=== PATIENT | female | born 1945 | race Caucasian/White ===

== ENCOUNTER → 2017-10-13 12:17 | Outpatient (CLI) | payer MEDICARE, OTHER, SELFPAY ==
[2017-10-13 12:26] LABS: Mucous, Urine 0 SEEN /hpf (<or=2+); Red Blood Cells-Urine 0 SEEN /hpf (0-5)
[2017-10-13 12:35] LABS: Color, Urine Yellow (Yellow); Glucose, Dipstick Normal (Normal); Ketone-Dipstick Negative (Negative); Leukocyte Esterase-Dipstick Negative /ul (Negative); Nitrite-Dipstick Negative (Negative); Occult Blood-Urine Negative /ul (Negative); Protein-Dipstick Negative (Negative); Urine Bilirubin Dipstick Negative (Negative); Urine Clarity Clear (Clear); Urine Urobilinogen Normal (Normal)
[2017-10-13 12:46] LABS: Bacteria RARE /hpf (None Seen); Squamous Epithelial Cells - UA 0-5 SEEN /hpf (5-10); White Blood Cells 0-5 SEEN /hpf (0-5)
[2017-10-13 12:56] LABS: Amphetamine Urine VISTA NEGATIVE (<1000 ng/mL); Barbiturate Urine VISTA NEGATIVE (< 200 ng/mL); Benzodiazepine Urine VISTA NEGATIVE (< 200 ng/mL); Cocaine Urine VISTA NEGATIVE (< 300 ng/mL); Ecstacy Urine VISTA NEGATIVE (< 500 ng/mL); Methadone Urine VISTA NEGATIVE (< 300 ng/mL); PCP Urine VISTA NEGATIVE (< 25 ng/mL); THC Urine VISTA NEGATIVE (< 50 ng/mL); Vista UDS pH Range 6
== END ==
PROVIDERS: Family Provider Internal Medicine; PCP Internal Medicine; Visit Provider Internal Medicine
DX: R10.9 Unspecified abdominal pain (principal); G89.29 Other chronic pain
CPT/HCPCS: 80307; 81001

== ENCOUNTER → 2018-01-12 13:18 | Outpatient (CLI) | payer MEDICARE, OTHER, SELFPAY ==
--- NOTE | 2018-01-12 13:20 | BI_ITS ---
MAMMOGRAPHY - UNILATERAL DIAGNOSTIC: LEFT BREAST REASON FOR EXAM: Female, 72 years old. Right breast carcinoma and lumpectomy 2010. 5 years tamoxifen. Family history breast carcinoma with half sister age 50. Patient currently complains a left breast lump for 3 weeks which is very painful today and hard to palpate but marked mammographically. TECHNIQUE: Digital examination. Mediolateral oblique (MLO) and craniocaudad (CC) views of the breast were obtained. CAD: Yes TOMOSYNTHESIS: Yes COMPARISON: 09/24/2017, 01/03/2016. FINDINGS: Breast Composition: The breasts are almost entirely fatty. There are no new architectural distortion, asymmetric density, dominant masses, suspicious microcalcification cluster, adenopathy, skin thickening or nipple retraction identified. Coarse benign-appearing calcifications are noted. No underlying lesion is identified near the triangular marker near the area of clinical concern involving the left breast lower inner quadrant anterior third near the nipple. No concerning lesion is seen with tomosynthesis imaging. BI/DIAG MAMM W/CAD, UNILAT IMPRESSION: Stable unilateral diagnostic left mammogram. Please see left breast ultrasound same day for additional details. ASSESSMENT CATEGORY: 2-Benign Findings FOLLOW-UP RECOMMENDATION: Yearly follow-up mammogram recommended. (A) Approximately 10% of breast cancers are not detected by mammography. A normal mammogram should not delay biopsy of a clinically suspicious abnormality. Negative mammographic or ultrasound results should not deter biopsy as a palpable lesion if present should be followed on clinical grounds and biopsy performed if clinically persistent for 3 months or increasing size. Clinical correlation is required. Electronically Signed: Bal Hutchison, at 20:47 EDT Tel , Service support ,
--- NOTE | 2018-01-12 15:08 | US_ITS ---
STUDY: ULTRASOUND BREAST - LEFT REASON FOR EXAM: Female, 72 years old. Right breast carcinoma and lumpectomy 2010. 5 years tamoxifen. Family history breast carcinoma with half sister age 50. Patient currently complains a left breast lump for 3 weeks which is very painful today and hard to palpate but marked mammographically. TECHNIQUE: Ultrasound targeted imaging of the LEFT breast was performed with a high resolution ultrasound transducer. COMPARISON: No prior left breast ultrasound imaging available. Correlation mammograms 09/24/2017 and 01/03/2016. FINDINGS: LEFT Breast: No sonographic abnormality is identified including the targeted position of the left breast in the area of clinical concern marked by a triangle by the arrt technologist. US/Breast Limited Unilateral IMPRESSION: No sonographic abnormality is identified. Please see left diagnostic mammogram same day for additional details. ASSESSMENT CATEGORY: 2-Benign Findings FOLLOW-UP RECOMMENDATION: Yearly follow-up mammogram recommended. (A) Approximately 10% of breast cancers are not detected by mammography. A normal mammogram should not delay biopsy of a clinically suspicious abnormality. Negative mammographic or ultrasound results should not deter biopsy as a palpable lesion if present should be followed on clinical grounds and biopsy performed if clinically persistent for 3 months or increasing size. Clinical correlation is required. Electronically Signed: Bal Hutchison, at 21:06 EDT Tel , Service support ,
== END ==
PROVIDERS: Family Provider Internal Medicine; PCP Internal Medicine; Visit Provider Nurse Practitioner Family
DX: N63.24 Unspecified lump in the left breast, lower inner quadrant (principal); N64.4 Mastodynia; Z85.3 Personal history of malignant neoplasm of breast; Z90.11 Acquired absence of right breast and nipple; Z80.3 Family history of malignant neoplasm of breast
CPT/HCPCS: 76642; 77061; 77065; G0279

== ENCOUNTER → 2018-01-13 11:33 | Outpatient (CLI) | payer MEDICARE, OTHER, SELFPAY ==
[2018-01-14 12:05] LABS: Amphetamine Urine VISTA NEGATIVE (<1000 ng/mL); Barbiturate Urine VISTA NEGATIVE (< 200 ng/mL); Benzodiazepine Urine VISTA POSITIVE (< 200 ng/mL); Cocaine Urine VISTA NEGATIVE (< 300 ng/mL); Ecstacy Urine VISTA NEGATIVE (< 500 ng/mL); Methadone Urine VISTA NEGATIVE (< 300 ng/mL); PCP Urine VISTA NEGATIVE (< 25 ng/mL); THC Urine VISTA NEGATIVE (< 50 ng/mL); Vista UDS pH Range 5
== END ==
PROVIDERS: Family Provider Internal Medicine; PCP Internal Medicine; Visit Provider Internal Medicine
DX: G89.29 Other chronic pain (principal)
CPT/HCPCS: 80307

== ENCOUNTER → 2018-04-15 10:04 | Outpatient (CLI) | payer MEDICARE, OTHER, SELFPAY ==
[2018-04-15 10:25] LABS: Amphetamine Urine VISTA NEGATIVE (<1000 ng/mL); Barbiturate Urine VISTA NEGATIVE (< 200 ng/mL); Benzodiazepine Urine VISTA POSITIVE (< 200 ng/mL); Cocaine Urine VISTA NEGATIVE (< 300 ng/mL); Ecstacy Urine VISTA NEGATIVE (< 500 ng/mL); Methadone Urine VISTA NEGATIVE (< 300 ng/mL); PCP Urine VISTA NEGATIVE (< 25 ng/mL); THC Urine VISTA NEGATIVE (< 50 ng/mL); Vista UDS pH Range 5
== END ==
PROVIDERS: Family Provider Internal Medicine; PCP Internal Medicine; Referring Provider Internal Medicine; Visit Provider Internal Medicine
DX: G89.29 Other chronic pain (principal)
CPT/HCPCS: 80307

== ENCOUNTER → 2018-10-20 15:19 | Outpatient (CLI) | payer MEDICARE, OTHER, SELFPAY ==
[2018-10-20 13:10] VITALS: BMI 39.1
[2018-10-20 16:26] LABS: Amphetamine Urine VISTA NEGATIVE (<1000 ng/mL); Barbiturate Urine VISTA NEGATIVE (< 200 ng/mL); Benzodiazepine Urine VISTA POSITIVE (< 200 ng/mL); Cocaine Urine VISTA NEGATIVE (< 300 ng/mL); Ecstacy Urine VISTA NEGATIVE (< 500 ng/mL); Methadone Urine VISTA NEGATIVE (< 300 ng/mL); PCP Urine VISTA NEGATIVE (< 25 ng/mL); THC Urine VISTA NEGATIVE (< 50 ng/mL); Vista UDS pH Range 5
== END ==
PROVIDERS: Family Provider Internal Medicine; PCP Internal Medicine; Referring Provider Internal Medicine; Visit Provider Internal Medicine
DX: G25.81 Restless legs syndrome (principal); G89.29 Other chronic pain
CPT/HCPCS: 80307

== ENCOUNTER → 2018-11-23 13:19 | Outpatient (CLI) | payer MEDICARE, OTHER, SELFPAY ==
[2018-10-20 13:10] VITALS: BMI 39.1
[2018-11-20 09:44] VITALS: BMI 38.4
--- NOTE | 2018-11-23 13:20 | BI_ITS ---
MAMMOGRAPHY - BILATERAL SCREENING REASON FOR EXAM: Female, 73 years old. Routine annual screening examination. PERTINENT HISTORY: Personal history of breast cancer. Prior right lumpectomy Sister with breast cancer. TECHNIQUE: Digital bilateral breast andrea (3D mammographic acquisition) in the CC and MLO projections. 2-D mediolateral oblique (MLO) and craniocaudad (CC) views of both breasts were obtained. CAD: Full Field Digital Mammography with Computer Added Detection was performed. COMPARISON: Comparison is made with prior examination dated January 12, 2018. FINDINGS: Breast Composition: The breasts are almost entirely fatty. There are no dominant masses or suspicious calcifications. Stable coarse benign-appearing calcifications are once again seen in the upper midportion of the right breast. This most likely represents the site of prior surgical intervention. No new mass lesion or clustered calcification is seen. No other significant abnormalities are identified. There has been no significant change since the prior study. BI/SCREENING MAMM (CAD), BILAT IMPRESSION: Stable bilateral screening mammogram. Yearly follow-up mammogram recommended. (A) ASSESSMENT CATEGORY: BIRADS Category 2: Benign. A letter regarding these results will be sent to the patient by the facility within 30 days. Approximately 10% of breast cancers are not detected by mammography. A normal mammogram should not delay biopsy of a clinically suspicious abnormality. [id number] Electronically Signed: Geovanni Sarkar, at 14:49 EDT , Service support ,
== END ==
PROVIDERS: Family Provider Internal Medicine; PCP Internal Medicine; Referring Provider Internal Medicine; Visit Provider Internal Medicine
DX: Z12.31 Encounter for screening mammogram for malignant neoplasm of breast (principal); Z80.3 Family history of malignant neoplasm of breast
CPT/HCPCS: 77067

== ENCOUNTER → 2019-01-21 16:07 | Outpatient (CLI) | payer MEDICARE, OTHER, SELFPAY ==
[2019-01-21 13:16] VITALS: BMI 38.4
[2019-01-21 16:49] LABS: Amphetamine Urine VISTA NEGATIVE (<1000 ng/mL); Barbiturate Urine VISTA NEGATIVE (< 200 ng/mL); Benzodiazepine Urine VISTA POSITIVE (< 200 ng/mL); Cocaine Urine VISTA NEGATIVE (< 300 ng/mL); Ecstacy Urine VISTA NEGATIVE (< 500 ng/mL); Methadone Urine VISTA NEGATIVE (< 300 ng/mL); PCP Urine VISTA NEGATIVE (< 25 ng/mL); THC Urine VISTA NEGATIVE (< 50 ng/mL); Vista UDS pH Range 6
== END ==
PROVIDERS: Family Provider Internal Medicine; PCP Internal Medicine; Referring Provider Internal Medicine; Visit Provider Internal Medicine
DX: G89.29 Other chronic pain (principal)
CPT/HCPCS: 80307

== ENCOUNTER → 2019-02-15 16:52 | Outpatient (CLI) | payer MEDICARE, OTHER, SELFPAY ==
[2019-02-15 13:39] VITALS: BMI 38.4
== END ==
PROVIDERS: Family Provider Internal Medicine; PCP Internal Medicine; Referring Provider Internal Medicine; Visit Provider Internal Medicine
DX: R19.7 Diarrhea, unspecified (principal); R10.9 Unspecified abdominal pain
CPT/HCPCS: 83630; 87493

== ENCOUNTER → 2019-12-02 10:48 | Outpatient (CLI) | payer MEDICARE, SELFPAY ==
[2019-09-21 09:56] VITALS: BMI 38.4
--- NOTE | 2019-12-02 10:49 | BI_ITS ---
MAMMOGRAPHY - BILATERAL SCREENING 3-D TOMOSYNTHESIS REASON FOR EXAM: Female, 74 years old. Routine screening PERTINENT HISTORY: BILAT SCREENING - PERSONAL HX @ AGE 64 WITH RT LUMPECTOMY WITH TAMOXIFEN - FAM HX OF 1/2 SISTER @ AGE 50''S -. TECHNIQUE: 2-D mammograms and 3-D Tomosynthesis of the breast (s) were performed. CAD was performed. COMPARISON: 11/23/2018 FINDINGS: The breast composition is almost entirely fat. Scattered benign calcifications are seen. No dense spiculated masses or suspicious microcalcifications are identified. Stable architectural distortion in the right breast from previous surgery.. There is no skin thickening or retraction. There has been no significant change since the prior study. BI/SCREEN MAMM (CAD) W/SEVEN BILAT IMPRESSION: No mammographic signs of malignancy. Routine yearly mammograms recommended. ASSESSMENT CATEGORY: BIRADS Category 2: Benign. A letter regarding these results will be sent to the patient by the facility within 30 days. FOLLOW UP RECOMMENDATION: Yearly follow up mammogram recommended. (A) Approximately 10% of breast cancers are not detected by mammography. A normal mammogram should not delay biopsy of a clinically suspicious abnormality. Electronically Signed: Orville Anderson MD at 13:35 EDT , Service support ,
--- NOTE | 2019-12-02 11:03 | BD_ITS ---
STUDY: DUAL ENERGY X-RAY ABSORPTIOMETRY / DXA REASON FOR EXAM: Female, 74 years old. Age of surgical clotilde 50. Pat is 187.9# and 61 and quot; a loss of 1.5 and quot;. Past use on an HRT. Past hx of smoking. Past use of an inhaler for many yrs PRN . Exercises a little. Fam hx of osteo. TECHNIQUE: Bone Mineral Density (BMD) measurements of lumbar spine and bilateral hips were obtained. COMPARISON: Comparison is made with prior study dated December 27, 2014. FINDINGS: Lumbar Spine (L1-L4): g/cm2 (1.086) / T-score (-0.8) / Z-score (0.9) Findings are suggestive of normal bone density with a low fracture risk. Left Femur Total: g/cm2 (0.968) / T-score (-0.3) / Z-score (1.3) Left Femoral Neck: g/cm2 (0.742) / T-score (-2.1) / Z-score (-0.3) Right Femur Total: g/cm2 (0.936) / T-score (-0.6) / Z-score (1.1) Right Femoral Neck: g/cm2 (0.756) / T-score (-2.0) / Z-score (-0.2) The T-Scores on the most recent prior examination were: Lumbar Spine (L1-L4): There has been worsening of bone density since the previous examination. Left Femur Total: which represents a worsening of 7.8%. Right Femur Total: which represents a worsening of 9.1%. BD/Dexa Bone Density Study IMPRESSION: The patient is considered osteopenic as outlined below according to World Blair Organization (WHO) criteria with a moderate fracture risk. There has been worsening of bone density since the previous examination. Reference Information: The T-score is the number of standard deviations above or below the standard which is normal for young adults at their peak bone mineral density. The World Health Organization (WHO) interprets the T-scores as follows: Above -1 Normal bone density Between -1 and -2.5 Osteopenia Equal to / or below -2.5 Osteoporosis As a practical clinical guideline, osteopenia may be graded as follows: Mild -1 through -1.5 Moderate -1.6 through -2.0 Severe -2.1 through -2.4 The Z-score is the number of standard deviations above or below age-matched controls. A Z-score of less than -1.5 would be considered abnormal. References: 1. NIH Osteoporosis and Related Bone Diseases http://www.osteo.org 2. International Society for Clinical Densitometry http://www.iscd.org 3. National Osteoporosis Foundation http://www.nof.org Electronically Signed: Geovanni Sarkar, at 12:54 EDT , Service support ,
== END ==
PROVIDERS: PCP Internal Medicine; Referring Provider Internal Medicine; Visit Provider Internal Medicine
DX: Z12.31 Encounter for screening mammogram for malignant neoplasm of breast (principal); Z78.0 Asymptomatic menopausal state
CPT/HCPCS: 77063; 77067; 77080

== ENCOUNTER → 2019-12-21 11:23 | Outpatient (CLI) | payer MEDICARE, OTHER, SELFPAY ==
[2019-12-21 10:49] VITALS: BMI 38.4
[2019-12-21 12:59] LABS: Amphetamine Urine VISTA NEGATIVE (<1000 ng/mL); Barbiturate Urine VISTA NEGATIVE (< 200 ng/mL); Benzodiazepine Urine VISTA POSITIVE (< 200 ng/mL); Cocaine Urine VISTA NEGATIVE (< 300 ng/mL); Ecstacy Urine VISTA NEGATIVE (< 500 ng/mL); Methadone Urine VISTA NEGATIVE (< 300 ng/mL); PCP Urine VISTA NEGATIVE (< 25 ng/mL); THC Urine VISTA NEGATIVE (< 50 ng/mL); Vista UDS pH Range 6
== END ==
PROVIDERS: PCP Internal Medicine; Referring Provider Internal Medicine; Visit Provider Internal Medicine
DX: M79.7 Fibromyalgia (principal); G25.81 Restless legs syndrome
CPT/HCPCS: 80307

== ENCOUNTER → 2020-04-05 16:11 | Outpatient (CLI) | payer MEDICARE, OTHER, SELFPAY ==
[2020-04-05 15:02] VITALS: BMI 33.4
[2020-04-05 17:18] LABS: Hematocrit 46.9 % (37-47); Hemoglobin 14.9 g/dL (12.0-15.0)
[2020-04-05 17:33] LABS: BNP,B-Type NATRIURETIC PEPTIDE 108.3 pg/mL (0-100)
[2020-04-05 17:45] LABS: Anion Gap 7 (5-15); BUN 17 mg/dL (7-18); BUN/Creat Ratio 21.9 RATIO (10-20); Calcium,Total 9.1 mg/dL (8.5-10.1); Chloride 103 mmol/L (98-107); Creatinine, Serum 0.78 mg/dL (0.55-1.02); EST Glomerular Filtration Rate 77 mL/min (>60); Est Glom Filt Rate - Afr Amer 93 mL/min (>60); Glucose 88 mg/dL (74-106); Magnesium 2.6 mg/dL (1.6-2.6); Potassium 4.1 mmol/L (3.5-5.1); Sodium Level 141 mmol/L (136-145)
== END ==
PROVIDERS: PCP Internal Medicine; Referring Provider Physician Assistant Medical; Visit Provider Physician Assistant Medical
DX: R06.00 Dyspnea, unspecified (principal); R00.2 Palpitations; I25.10 Atherosclerotic heart disease of native coronary artery without angina pectoris; G56.03 Carpal tunnel syndrome, bilateral upper limbs
CPT/HCPCS: 36415; 80048; 83735; 83880; 84443; 85014; 85018

== ENCOUNTER → 2020-04-19 | Outpatient (CLI) | payer MEDICARE, OTHER, SELFPAY ==
[2020-04-05 15:02] VITALS: BMI 33.4
== END | disposition home or self-care (01) ==
LOC: LABSPEC 15:29
PROVIDERS: PCP Internal Medicine; Referring Provider Internal Medicine; Visit Provider Internal Medicine
DX: R19.7 Diarrhea, unspecified (principal)
CPT/HCPCS: 87493

== ENCOUNTER → 2020-05-09 07:02 | Outpatient (CLI) | payer MEDICARE, OTHER, SELFPAY ==
[2020-04-05 15:02] VITALS: BMI 33.4
--- NOTE | 2020-05-09 11:45 | STRESSREP_ITS ---
Stress Test Report Date: 05-09-2020 Procedure: Exercise tolerance test/imaging study Indications: Shortness of breath/dyspnea on exertion; palpitations; PSVT; CAD Consent: Per the patient Procedure: The patient exercised on a José protocol for 2 minutes and 15 seconds not completing Stage I achieving a peak heart rate of 134 bpm (91% predicted maximal heart rate) with a peak blood pressure 108/74 mmHg and a peak MET capacity of 4 METs. The baseline ECG demonstrated normal sinus rhythm; nonspecific T wave abnormality. The peak exercise ECG demonstrated somatic/motion artifact with no obvious ECG changes. There were occasional PVCs during exercise and recovery and the appearance of ventricular bigeminy, trigeminy, and quadrigeminy during recovery as well as the appearance of a brief episode of a nonsustained irregular wide-complex tachycardia with spontaneous resolution to baseline and a nonsustained irregular narrow complex tachycardia with subsequent spontaneous resolution to baseline. The functional capacity was considered decreased. There was no complaint of chest discomfort during exercise or recovery. The examination was discontinued secondary to dyspnea. Impression: 1. Technically adequate (percent predicted maximal heart rate greater than 85%) exercise tolerance test 2. Peak exercise ECG with somatic/motion artifact 3. There were occasional PVCs during exercise and recovery and the appearance of ventricular bigeminy, trigeminy, and quadrigeminy during recovery as well as the appearance of a brief episode of a nonsustained irregular wide-complex tachycardia with spontaneous resolution to baseline and a nonsustained irregular narrow complex tachycardia with subsequent spontaneous resolution to baseline. 4. Pharmacologic (Regadenoson) evaluation pending Procedure: Pharmacologic stress nuclear imaging study Consent: Per the patient Procedure: The patient underwent pharmacologic (Regadenoson) evaluation with a peak heart rate of 121 beats per minute (82%predicted maximal heart rate) and a peak blood pressure of 120/70 mmHg. The baseline ECG demonstrated normal sinus rhythm with nonspecific T wave abnormality. The peak pharmacologic ECG demonstrated continued nonspecific T wave abnormality as well as subtle ST segment horizontal depression in leads II, III, and aVF with gradual return to baseline in recovery. There were no cardiac dysrhythmias pretest, during pharmacologic infusion, or recovery. There was no complaint of chest discomfort during pharmacologic infusion or recovery. The examination was discontinued secondary to completion of protocol. Impression: 1. Pharmacologic (Regadenoson) evaluation 2. Peak pharmacologic ECG with continued nonspecific T wave abnormality as well as subtle ST segment horizontal depression in leads II, III, and aVF with gradual return to baseline in recovery. 3. There were no cardiac dysrhythmias pretest, during pharmacologic infusion, or recovery. 4. Nuclear images pending Myocardial perfusion imaging study: Technique: The patient was injected with 11.2 millicuries of technetium 99m Cardiolite and subsequently rest SPECT Cardiolite nuclear imaging was obtained in the horizontal long, vertical long, and short axis views. The patient exercised on a José protocol for 2 minutes and 15 seconds not completing Stage I achieving a peak heart rate of 134 bpm (91% predicted maximal heart rate) with a peak blood pressure 108/74 mmHg and a peak MET capacity of 4 METs. The patient underwent pharmacologic (Regadenoson) evaluation with a peak heart rate of 121 beats per minute (82% percent predicted maximal heart rate) and a peak blood pressure of 120/70 mmHg. The patient was injected with 33.8 millicuries of technetium 99m Cardiolite and subsequently stress SPECT Cardiolite nuclear imaging was obtained in the horizontal long, vertical long, and short axis views. A gated Cardiolite study at peak stress was obtained. Interpretation: Rest and stress SPECT Cardiolite nuclear imaging status post realignment, normalization, and attenuation correction demonstrate relative uniform tracer uptake and myocardial perfusion appearing within normal limits. There is end systolic thickening and brightening. The gated Cardiolite study demonstrates myocardial thickening and inward wall motion. The reported LVEF is 85%. Impression: 1. Rest and stress SPECT Cardiolite nuclear imaging demonstrate relative uniform tracer uptake and myocardial perfusion appearing within normal limits. 2. The gated Cardiolite study reports an LVEF of 85%. This note was generated with [employer] software. It may contain incorrect words, spelling, and punctuation that were not noted in checking the note before signing.
== END ==
PROVIDERS: PCP Internal Medicine; Referring Provider Physician Assistant Medical; Visit Provider Physician Assistant Medical
DX: R06.02 Shortness of breath (principal); R00.2 Palpitations; I25.10 Atherosclerotic heart disease of native coronary artery without angina pectoris
CPT/HCPCS: 78452; 93017; 93225; 93226; A9500; A4216; J2785

== ENCOUNTER → 2020-05-16 09:30 | Outpatient (CLI) | payer MEDICARE, OTHER, SELFPAY ==
[2020-05-16 08:43] VITALS: BMI 32.3
[2020-05-16 10:41] LABS: Anion Gap 4 (5-15); BUN 9 mg/dL (7-18); Calcium,Total 9.1 mg/dL (8.5-10.1); Chloride 106 mmol/L (98-107); Creatinine, Serum 0.69 mg/dL (0.55-1.02); EST Glomerular Filtration Rate 88 mL/min (>60); Est Glom Filt Rate - Afr Amer 106 mL/min (>60); Glucose 81 mg/dL (74-106); Magnesium 2.2 mg/dL (1.6-2.6); Potassium 4.5 mmol/L (3.5-5.1); Sodium Level 141 mmol/L (136-145)
== END ==
PROVIDERS: PCP Internal Medicine; Referring Provider Physician Assistant Medical; Visit Provider Physician Assistant Medical
DX: I47.1 Supraventricular tachycardia (principal)
CPT/HCPCS: 36415; 80048; 83735

== ENCOUNTER → 2020-06-20 | Outpatient (CLI) | payer MEDICARE, OTHER, SELFPAY ==
[2020-06-20 11:17] VITALS: BMI 32.9
[2020-06-20 16:34] LABS: Amphetamine Urine VISTA NEGATIVE (<1000 ng/mL); Barbiturate Urine VISTA NEGATIVE (< 200 ng/mL); Benzodiazepine Urine VISTA NEGATIVE (< 200 ng/mL); Cocaine Urine VISTA NEGATIVE (< 300 ng/mL); Ecstacy Urine VISTA NEGATIVE (< 500 ng/mL); Methadone Urine VISTA NEGATIVE (< 300 ng/mL); PCP Urine VISTA NEGATIVE (< 25 ng/mL); THC Urine VISTA NEGATIVE (< 50 ng/mL); Vista UDS pH Range 5
== END | disposition home or self-care (01) ==
LOC: LABSPEC 11:58
PROVIDERS: PCP Internal Medicine; Referring Provider Internal Medicine; Visit Provider Internal Medicine
DX: I47.1 Supraventricular tachycardia (principal)
CPT/HCPCS: 80307

== ENCOUNTER → 2020-07-21 | Outpatient (CLI) | payer MEDICARE, OTHER, SELFPAY ==
[2020-06-20 11:17] VITALS: BMI 32.9
== END | disposition home or self-care (01) ==
LOC: LABSPEC 13:43
PROVIDERS: PCP Internal Medicine; Referring Provider Internal Medicine; Visit Provider Internal Medicine
DX: A04.72 Enterocolitis due to Clostridium difficile, not specified as recurrent (principal)
CPT/HCPCS: 87493

== ENCOUNTER 2020-08-07 17:18 | Outpatient (RCR) | payer MEDICARE, OTHER, SELFPAY ==
[2020-06-20 11:17] VITALS: BMI 32.9
== END 2020-08-07 23:59 ==
LOC: IMMUN 17:18
PROVIDERS: PCP Internal Medicine; Visit Provider Family Medicine
DX: Z23 Encounter for immunization (principal)
CPT/HCPCS: 0011A; 0012A

== ENCOUNTER → 2020-09-20 11:18 | Outpatient (CLI) | payer MEDICARE, OTHER, SELFPAY ==
[2020-09-20 10:57] VITALS: BMI 32.3
[2020-09-20 13:23] LABS: AST(SGOT) 25 U/L (15-37); Alanine Aminotransfer ALT/SGPT 24 U/L (13-56); Albumin, Serum 3.6 g/dL (3.2-5.0); Alkaline Phosphatase 85 U/L (45-117); Anion Gap 2 (5-15); BUN 11 mg/dL (7-18); BUN/Creat Ratio 16.5 RATIO (10-20); Calcium,Total 8.9 mg/dL (8.5-10.1); Chloride 104 mmol/L (98-107); Cholesterol 204 mg/dL (200); Creatinine, Serum 0.67 mg/dL (0.55-1.02); EST Glomerular Filtration Rate 92 mL/min (>60); Est Glom Filt Rate - Afr Amer 111 mL/min (>60); Globulin 3.6 g/dL (2.2-4.2); Glucose 71 mg/dL (74-106); High Density Lipoprotein 57 mg/dL; Potassium 4.2 mmol/L (3.5-5.1); Protein, Total 7.2 g/dL (6.4-8.2); Sodium Level 139 mmol/L (136-145); T4 Free Direct 0.97 ng/dL (0.76-1.46); Thyroid Stim Hormone (TSH) 1.03 uIU/mL (0.358-3.74); Triglycerides 180 mg/dL; Very Low Density Lipoprotein 36 mg/dL (5-40)
== END ==
PROVIDERS: PCP Internal Medicine; Referring Provider Internal Medicine; Visit Provider Internal Medicine
DX: K58.9 Irritable bowel syndrome, unspecified (principal); K75.81 Nonalcoholic steatohepatitis (NASH); I47.1 Supraventricular tachycardia; E66.9 Obesity, unspecified; R20.0 Anesthesia of skin; R20.2 Paresthesia of skin; Z13.29 Encounter for screening for other suspected endocrine disorder
CPT/HCPCS: 36415; 80053; 80061; 84439; 84443

== ENCOUNTER → 2020-12-07 10:44 | Outpatient (CLI) | payer MEDICARE, OTHER, SELFPAY ==
[2020-09-20 10:57] VITALS: BMI 32.3
--- NOTE | 2020-12-07 10:45 | BI_ITS ---
MAMMOGRAPHY - BILATERAL SCREENING REASON FOR EXAM: Female, 75 years old. Routine annual screening examination. PERTINENT HISTORY: Personal history of breast cancer. Prior right lumpectomy. Sister with breast cancer. TECHNIQUE: Digital bilateral breast seven (3D mammographic acquisition) in the CC and MLO projections. 2-D mediolateral oblique (MLO) and craniocaudad (CC) views of both breasts were obtained. CAD: Full Field Digital Mammography with Computer Added Detection was performed. COMPARISON: Comparison is made with prior study dated 12/02/2019 and 11/23/2018. FINDINGS: Breast Composition: There are scattered areas of fibroglandular density. There are no dominant masses or suspicious calcifications. Postoperative scarring is seen in the upper and slightly medial aspect of the right breast and compared with prior lumpectomy. A focal dense calcified nodule is seen at the operative site. No other significant abnormalities are identified. There has been no significant change since the prior study. BI/SCREEN MAMM (CAD) W/SEVEN UNI L IMPRESSION: Stable bilateral screening mammogram. Yearly follow-up mammogram recommended. (A) ASSESSMENT CATEGORY: BIRADS Category 2: Benign. A letter regarding these results will be sent to the patient by the facility within 30 days. Approximately 10% of breast cancers are not detected by mammography. A normal mammogram should not delay biopsy of a clinically suspicious abnormality. [id number] Electronically Signed: Geovanni Sarkar MD at 12:15 EDT , Service support ,
== END ==
PROVIDERS: PCP Internal Medicine; Referring Provider Internal Medicine; Visit Provider Internal Medicine
DX: Z12.31 Encounter for screening mammogram for malignant neoplasm of breast (principal)
CPT/HCPCS: 77063; 77067

== ENCOUNTER → 2021-03-27 | Outpatient (CLI) | payer MEDICARE, OTHER, SELFPAY ==
[2021-03-27 15:42] LABS: Amphetamine Urine VISTA NEGATIVE (<1000 ng/mL); Barbiturate Urine VISTA NEGATIVE (< 200 ng/mL); Benzodiazepine Urine VISTA NEGATIVE (< 200 ng/mL); Cocaine Urine VISTA NEGATIVE (< 300 ng/mL); Ecstacy Urine VISTA NEGATIVE (< 500 ng/mL); Methadone Urine VISTA NEGATIVE (< 300 ng/mL); PCP Urine VISTA NEGATIVE (< 25 ng/mL); THC Urine VISTA NEGATIVE (< 50 ng/mL); Vista UDS pH Range 5
== END | disposition home or self-care (01) ==
LOC: LABSPEC 11:47
PROVIDERS: PCP Internal Medicine; Referring Provider Internal Medicine; Visit Provider Internal Medicine
DX: M79.7 Fibromyalgia (principal)
CPT/HCPCS: 80307

== ENCOUNTER 2021-06-27 11:39 | Outpatient (CLI) | payer MEDICARE, OTHER, SELFPAY ==
[2021-06-27 15:12] LABS: Absolute Lymphocyte Count 2.14 X10^3/uL (0.83-4.51); Absolute Neutrophil Count 3.1 X10^3/uL (2.0-7.7); Basophil# 0.03 X10^3/uL; Basophil% 0.5 % (0-1); Eosinophil# 0.08 X10^3/uL; Eosinophils% 1.3 % (0-5); Hematocrit 45.3 % (37-47); Hemoglobin 14.4 g/dL (12.0-15.0); Lymphocyte # 2.14 X10^3/ul (0.83-4.51); Lymphocyte % 35.4 % (19-41); Mean Corp Hgb Conc 31.8 g/dL (32-36); Mean Corpuscular Hgb 28.9 pg (27.0-32.0); Mean Corpuscular Volume 90.8 fL (81-99); Mean Platelet Vol. 11.1 fl (6.2-12.0); Monocyte# 0.67 X10^3/uL; Monocyte% 11.1 % (0-10); NRBC Flagged by Analyzer 0 % (0-5); Neutrophil # 3.12 X10^3/uL (2.7-7.7); Neutrophil % 51.5 % (47-70); Platelet Count 220 K/mm3 (150-450); RBC Distribution Width SD 43.2 fl (35.1-43.9); Red Blood Count 4.99 M/mm3 (4.2-5.4); White Blood Count 6.1 K/mm3 (4.4-11.0)
[2021-06-27 15:18] LABS: Prothrombin Time (Protime)PT. 12.3 SECONDS (11.7-14.9)
[2021-06-27 15:38] LABS: AST(SGOT) 20 U/L (15-37); Alanine Aminotransfer ALT/SGPT 26 U/L (13-56); Albumin, Serum 3.6 g/dL (3.2-5.0); Alkaline Phosphatase 80 U/L (45-117); Anion Gap 5 (5-15); BUN 16 mg/dL (7-18); BUN/Creat Ratio 24.8 RATIO (10-20); Chloride 106 mmol/L (98-107); Creatinine, Serum 0.65 mg/dL (0.55-1.02); EST Glomerular Filtration Rate 95 mL/min (>60); Est Glom Filt Rate - Afr Amer 115 mL/min (>60); Globulin 3.5 g/dL (2.2-4.2); Glucose 79 mg/dL (74-106); Potassium 4.3 mmol/L (3.5-5.1); Protein, Total 7.1 g/dL (6.4-8.2); Sodium Level 140 mmol/L (136-145)
== END 2021-06-27 23:59 | disposition short-term general hospital (02) ==
LOC: BIMLAB 11:40
PROVIDERS: PCP Internal Medicine; Referring Provider Internal Medicine; Visit Provider Internal Medicine
DX: M79.7 Fibromyalgia (principal); K75.81 Nonalcoholic steatohepatitis (NASH)
CPT/HCPCS: 36415; 80053; 85025; 85610

== ENCOUNTER 2021-07-17 06:17 | Outpatient (CLI) | payer MEDICARE, OTHER, SELFPAY ==
--- NOTE | 2021-07-17 06:19 | CDU_ITS ---
Reason For Study: Pain in left neck and head with exercise, CAD Rt. Velocities/BP Lt. Velocities/BP Prox CCA 74.7/12.1 cm/sec. Prox CCA 107.3/18.6 cm/sec. Mid CCA 70.8/16 cm/sec. Mid CCA 95.6/20 cm/sec. Dist CCA 65.6/17.3 cm/sec. Dist CCA 76/12.1 cm/sec. Prox ICA 68.2/17.3 cm/sec. Prox ICA 85.1/19.9 cm/sec. Mid ICA 93/25.2 cm/sec. Mid ICA 74.7/21.2 cm/sec. Dist ICA 90.4/26.5 cm/sec. Dist ICA 82.5/20 cm/sec. Rt. ICA/CCA = 1.3. Lt. ICA/CCA = 0.9. Prox ECA 90.4/8.2 cm/sec. Prox ECA 111.2/9.5 cm/sec. Rt. Vert. 57.8/13.4 cm/sec. Lt. Vert. 55.2/13.4 cm/sec. Right Extracranial There is homogeneous, smooth atherosclerotic plaque noted in the right common carotid artery. There is heterogeneous, irregular atherosclerotic plaque noted in the right internal carotid artery. There is heterogeneous, irregular atherosclerotic plaque noted in the right external carotid artery. Antegrade flow is noted in the right vertebral artery. Left Extracranial There is homogeneous, smooth atherosclerotic plaque noted in the left common carotid artery. There is heterogeneous, irregular atherosclerotic plaque noted in the left internal carotid artery. There is intimal thickening but no significant atherosclerotic plaque noted in the left external carotid artery. Antegrade flow is noted in the left vertebral artery. Procedure Carotid Duplex [id number]. This is a Carotid Duplex examination using B-mode, color flow and specral Doppler. Exam performed in department. VL/Carotid Duplex Ultrasound Interpretation Summary Smooth calcific plaque with shadowing at the proximal right internal carotid ar akosua with less than 50% stenosis Less than 50% stenosis right external carotid artery Irregular calcific plaque at the proximal left internal carotid artery with les s than 50% stenosis Less than 50% stenosis left external carotid artery Patent and antegrade vertebral arteries bilaterally Ordering Physician: Silvina Joaquin Referring Physician: Nita Agustin Performed By: Ana Herr RVT
--- NOTE | 2021-07-17 09:02 | STRESSREP ---
Stress Test Report Date: 07-17-2021 Procedure: Pharmacologic stress nuclear imaging study Indications: Chest pain with exertion; CAD Consent: Per the patient Procedure: The patient underwent pharmacologic (Regadenoson 0.4mg ) evaluation with a peak heart rate of 107 beats per minute (73%predicted maximal heart rate) and a peak blood pressure of 128/78 mmHg. The baseline ECG demonstrated sinus bradycardia; nonspecific T wave abnormality. The peak pharmacologic ECG demonstrated continued nonspecific T wave abnormality. There were no cardiac dysrhythmias pretest, during pharmacologic infusion, or recovery. There was no complaint of chest discomfort during pharmacologic infusion or recovery. The examination was discontinued secondary to completion of protocol. Impression: 1. Pharmacologic (Regadenoson) evaluation 2. Peak pharmacologic ECG with continued nonspecific T wave abnormality. 3. There were no cardiac dysrhythmias pretest, during pharmacologic infusion, or recovery. 4. Nuclear images pending Myocardial perfusion imaging study: Technique: The patient was injected with 14.1 millicuries of technetium 99m Cardiolite and subsequently rest SPECT Cardiolite nuclear imaging was obtained in the horizontal long, vertical long, and short axis views. The patient underwent pharmacologic (Regadenoson) evaluation with a peak heart rate of 107 beats per minute (73% percent predicted maximal heart rate) and a peak blood pressure of 128/78 mmHg. The patient was injected with 43.9 millicuries of technetium 99m Cardiolite and subsequently stress SPECT Cardiolite nuclear imaging was obtained in the horizontal long, vertical long, and short axis views. A gated Cardiolite study at peak stress was obtained. Interpretation: Rest and stress SPECT Cardiolite nuclear imaging status post realignment, normalization, and attenuation correction demonstrate relative uniform tracer uptake and myocardial perfusion appearing within normal limits. There is end systolic thickening and brightening. The gated Cardiolite study demonstrates myocardial thickening and inward wall motion. The reported LVEF is 87%. Impression: 1. Rest and stress SPECT Cardiolite nuclear imaging demonstrate relative uniform tracer uptake and myocardial perfusion appearing within normal limits. 2. The gated Cardiolite study reports an LVEF of 87%. This note was generated with [employer] software. It may contain incorrect words, spelling, and punctuation that were not noted in checking the note before signing.
== END 2021-07-17 23:59 | disposition home or self-care (01) ==
PROVIDERS: PCP Internal Medicine; Referring Provider Nurse Practitioner Gerontology; Visit Provider Nurse Practitioner Gerontology
DX: I25.118 Atherosclerotic heart disease of native coronary artery with other forms of angina pectoris (principal); E78.2 Mixed hyperlipidemia; M54.2 Cervicalgia; R09.89 Other specified symptoms and signs involving the circulatory and respiratory systems
CPT/HCPCS: 78452; 93017; 93880; A9500; A4216; J2785

== ENCOUNTER 2021-07-18 07:54 | Outpatient (CLI) | payer MEDICARE, OTHER, SELFPAY ==
--- NOTE | 2021-07-18 07:55 | ECHOD_ITS ---
Reason For Study: CHEST PAIN Procedure This was a 2D Doppler, Color Flow transthoracic echocardiogram. The exam was of adequate technical quality. Exam performed in department. Left Ventricle Normal LV size. Left ventricular systolic function is normal. The estimated ejection fraction is 65 %. No evidence for diastolic dysfunction. No regional wall motion abnormalities noted. Right Ventricle Normal RV size. Normal systolic function. Atria Normal left atrium. Normal right atrium. No doppler evidence for ASD. Mitral Valve There is no mitral annular calcification. Anterior leaflet diffuse mitral valve thickening. Trivial mitral valve insufficiency. Tricuspid Valve Normal tricuspid valve. Mild tricuspid valve insufficiency. Right ventricular systolic pressure estimated to be 30 mmHg. Aortic Valve Trisinus/trileaflet aortic valve. Mild diffuse aortic valve thickening. Pulmonic Valve The pulmonic valve is not well visualized. Great Vessels Normal sized aortic root. Pericardium/Pleural No pericardial effusion. MMode/2D Measurements & Calculations LVIDd: 4.5 cm IVSd: 0.87 cm Ao root diam: 3.4 cm LVIDs: 2.8 cm LVPWd: 0.87 cm RVDd: 3.8 cm FS: 37.1 % LAV(MOD-bp): 55.8 ml LVAd ap4: 21.4 cm2 LVAd ap2: 17.4 cm2 LAV(MOD-bp) Indexed: 30.6 ml/m2 LVLd ap4: 6.7 cm LVLd ap2: 6.5 cm LAV(MOD-sp2): 55.0 ml EDV(MOD-sp4): 59.3 ml EDV(MOD-sp2): 38.8 ml LAV(MOD-sp4): 55.7 ml EDV(sp4-el): 58.0 ml EDV(sp2-el): 39.2 ml LVAs ap4: 11.8 cm2 LVAs ap2: 8.1 cm2 LVLs ap4: 5.6 cm LVLs ap2: 4.8 cm ESV(MOD-sp4): 21.9 ml ESV(MOD-sp2): 14.4 ml ESV(sp4-el): 21.3 ml ESV(sp2-el): 11.4 ml EF(MOD-sp4): 63.2 % EF(MOD-sp2): 63.0 % EF(sp4-el): 63.3 % SV(MOD-sp4): 37.5 ml SV(MOD-sp2): 24.5 ml SV(sp4-el): 36.7 ml LA dimension(2D): 4.1 cm LA A4 area: 19.3 cm2 RA A4 area: 12.8 cm2 Doppler Measurements & Calculations MV E max jose carlos: 61.9 cm/sec Lat Peak E' Jose Carlos: 7.9 cm/sec Med Peak E' Jose Carlos: 6.5 cm/sec MV A max jose carlos: 58.9 cm/sec E/E' lat: 7.9 E/E' med: 9.5 MV E/A: 1.0 Ao V2 max: 126.4 cm/sec LV V1 max: 76.3 cm/sec TR max jose carlos: 271.4 cm/sec Ao max P.4 mmHg LV V1 max P.3 mmHg TR max P.5 mmHg ECHO/Echo Complete Interpretation Summary Left ventricular systolic function is normal. The estimated ejection fraction is 65 %. Anterior leaflet diffuse mitral valve thickening. Trivial mitral valve insufficiency. Mild tricuspid valve insufficiency. Mild diffuse aortic valve thickening. Right ventricular systolic pressure estimated to be 30 mmHg. No evidence for diastolic dysfunction. Ordering Physician: Silvina Joaquin Referring Physician: Nita Agustin Performed By: Joyce Reyes, RDCS, RVT
== END 2021-07-18 23:59 | disposition home or self-care (01) ==
LOC: CVS 07:54
PROVIDERS: PCP Internal Medicine; Referring Provider Nurse Practitioner Gerontology; Visit Provider Nurse Practitioner Gerontology
DX: I25.118 Atherosclerotic heart disease of native coronary artery with other forms of angina pectoris (principal); E78.2 Mixed hyperlipidemia; M54.2 Cervicalgia; R07.9 Chest pain, unspecified
CPT/HCPCS: 93306

== ENCOUNTER → 2021-11-23 | Outpatient (CLI) | payer MEDICARE, OTHER, SELFPAY ==
[2021-11-23 15:25] LABS: Prothrombin Time (Protime)PT. 13.3 SECONDS (11.7-14.9)
[2021-11-23 15:29] LABS: Absolute Lymphocyte Count 2.33 X10^3/uL (0.83-4.51); Absolute Neutrophil Count 3.1 X10^3/uL (2.0-7.7); Basophil# 0.03 X10^3/uL; Basophil% 0.5 % (0-1); Eosinophil# 0.08 X10^3/uL; Eosinophils% 1.3 % (0-5); Hematocrit 46.1 % (37-47); Hemoglobin 15.2 g/dL (12.0-15.0); Lymphocyte # 2.33 X10^3/ul (0.83-4.51); Lymphocyte % 37.8 % (19-41); Mean Corpuscular Hgb 29.6 pg (27.0-32.0); Mean Corpuscular Volume 89.9 fL (81-99); Mean Platelet Vol. 10.3 fl (6.2-12.0); Monocyte# 0.61 X10^3/uL; Monocyte% 9.9 % (0-10); NRBC Flagged by Analyzer 0 % (0-5); Neutrophil # 3.09 X10^3/uL (2.7-7.7); Neutrophil % 50.2 % (47-70); Platelet Count 214 K/mm3 (150-450); RBC Distribution Width CV 13.2 % (11.6-14.6); RBC Distribution Width SD 43.4 fl (35.1-43.9); Red Blood Count 5.13 M/mm3 (4.2-5.4); White Blood Count 6.2 K/mm3 (4.4-11.0)
[2021-11-23 15:40] LABS: ALB/GLOB Ratio 1.1 RATIO (0.9-2.4); AST(SGOT) 31 U/L (15-37); Alanine Aminotransfer ALT/SGPT 30 U/L (13-56); Albumin, Serum 3.8 g/dL (3.2-5.0); Alkaline Phosphatase 66 U/L (45-117); Anion Gap 4 (5-15); BUN 16 mg/dL (7-18); BUN/Creat Ratio 17.5 RATIO (10-20); CPK Total, Creatine Kinase 129 U/L (26-192); CRP < 2.90 mg/L (0.0-3.0); Calcium,Total 9.2 mg/dL (8.5-10.1); Chloride 107 mmol/L (98-107); Creatinine, Serum 0.91 mg/dL (0.55-1.02); EST Glomerular Filtration Rate 64 mL/min (>60); Est Glom Filt Rate - Afr Amer 77 mL/min (>60); Ferritin 17 ng/mL (8-252); Globulin 3.6 g/dL (2.2-4.2); Glucose 98 mg/dL (74-106); LDH 259 U/L (84-246); Potassium 4.6 mmol/L (3.5-5.1); Protein, Total 7.4 g/dL (6.4-8.2); Sodium Level 141 mmol/L (136-145)
[2021-11-23 15:41] LABS: Erythrocyte Sedimentation Rate 1 mm/hr (0-30)
== END | disposition home or self-care (01) ==
LOC: LAB 14:47
PROVIDERS: PCP Internal Medicine; Referring Provider Internal Medicine Gastroenterology; Visit Provider Internal Medicine Gastroenterology
DX: K75.81 Nonalcoholic steatohepatitis (NASH) (principal); I47.1 Supraventricular tachycardia; M79.7 Fibromyalgia
CPT/HCPCS: 36415; 80053; 82140; 82550; 82728; 83615; 85025; 85610; 85652; 86140

== ENCOUNTER → 2022-01-04 | Outpatient (CLI) | payer MEDICARE, OTHER, SELFPAY ==
--- NOTE | 2022-01-04 10:54 | RAD_ITS ---
STUDY: X-RAY - LUMBAR SPINE REASON FOR EXAM: Female, 76 years old. PAIN TECHNIQUE: 2 view(s) of the lumbar spine were obtained. COMPARISON: None FINDINGS: Normal lumbar lordosis. There is a levoscoliosis of the lumbar spine. There is a normal alignment of the vertebrae. There is multilevel endplate spondylosis of the lumbar vertebrae. There is multi-level degenerative disc disease with multi-level disc space narrowing. There is no demonstrated fracture. Multilevel facet arthropathy predominantly at lumbosacral junction. Bariatric device projects over the left abdomen/pelvis. Cholecystectomy clips. Abdominal aortic atherosclerosis. RAD/Lumbar Spine 2 or 3 Views IMPRESSION: 1. Multilevel degenerative disc disease and facet arthropathy particularly in the lower lumbar spine. Electronically Signed: Vinny Peerz MD ([place]) at 10:40 EDT ,
--- NOTE | 2022-01-04 10:54 | RAD_ITS ---
STUDY: CERVICAL SPINE X-RAY SERIES--3 VIEWS OF 1107 HOURS ON 01/04/2022 REASON FOR EXAM: 76-year-old female with neck pain. TECHNIQUE: 3 view(s) of the cervical spine were obtained. COMPARISON: None FINDINGS: Mild cervical kyphosis that may be indicative of muscle spasm. Mild demineralization. No vertebral body fractures or subluxations. Marked narrowing of the C5-6 and C6-7 intervertebral disc spaces with moderate anterior and mild posterior osteophytic degenerative changes. Intact odontoid and posterior elements. Narrowing of atlantoaxial joint--not unusual for age. Normal surrounding soft tissues. RAD/Cerv Spine 2 or 3 Views IMPRESSION: 1. Mild cervical kyphosis that may be indicative of muscle spasm. 2. Mild demineralization. 3. No vertebral body fractures or subluxations. 4. Marked narrowing of the C5-6 and C6-7 intervertebral disc spaces with moderate anterior and mild posterior osteophytic degenerative changes. 5. Intact odontoid and posterior elements. 6. Narrowing of the atlantoaxial joint, not unusual for age. Electronically Signed: Bruce Hazel MD at 2:09 EDT ,
== END | disposition home or self-care (01) ==
LOC: MTRAD 10:53
PROVIDERS: PCP Internal Medicine; Referring Provider Anesthesiology Pain Medicine; Visit Provider Anesthesiology Pain Medicine
DX: M48.02 Spinal stenosis, cervical region (principal); M46.96 Unspecified inflammatory spondylopathy, lumbar region; M54.12 Radiculopathy, cervical region; M40.202 Unspecified kyphosis, cervical region; M47.816 Spondylosis without myelopathy or radiculopathy, lumbar region; M51.36 Other intervertebral disc degeneration, lumbar region
CPT/HCPCS: 72040; 72100

== ENCOUNTER → 2022-01-11 | Outpatient (CLI) | payer MEDICARE, OTHER, SELFPAY ==
--- NOTE | 2022-01-11 10:26 | BI_ITS ---
MAMMOGRAPHY - BILATERAL SCREENING REASON FOR EXAM: Female, 76 years old. Routine annual screening examination. PERTINENT HISTORY: Personal history of breast cancer. Prior right lumpectomy. Sister with breast cancer. TECHNIQUE: Digital bilateral breast seven (3D mammographic acquisition) in the CC and MLO projections. 2-D mediolateral oblique (MLO) and craniocaudad (CC) views of both breasts were obtained. CAD: Full Field Digital Mammography with Computer Added Detection was performed. COMPARISON: Comparison is made with prior study dated 12/07/2020 and 12/02/2019. FINDINGS: Breast Composition: There are scattered areas of fibroglandular density. There are no dominant masses or suspicious calcifications. The patient is status post lumpectomy in the upper medial aspect of the right breast with resultant postoperative architectural distortion and focal dense calcification. This is unchanged. Stable small benign-appearing bilateral axillary lymph nodes. No other significant abnormalities are identified. There has been no significant change since the prior study. BI/SCRN MAMM (CAD)W/SEVEN BILAT IMPRESSION: Stable bilateral screening mammogram. Yearly follow-up mammogram recommended. (A) ASSESSMENT CATEGORY: BIRADS Category 2: Benign. A letter regarding these results will be sent to the patient by the facility within 30 days. Approximately 10% of breast cancers are not detected by mammography. A normal mammogram should not delay biopsy of a clinically suspicious abnormality. [id number] Electronically Signed: Geovanni Sarkar MD at 9:32 EDT ,
== END | disposition home or self-care (01) ==
LOC: OPBI 10:25
PROVIDERS: PCP Internal Medicine; Visit Provider Physician Assistant
DX: Z12.31 Encounter for screening mammogram for malignant neoplasm of breast (principal); Z85.3 Personal history of malignant neoplasm of breast; Z80.3 Family history of malignant neoplasm of breast
CPT/HCPCS: 77063; 77067

== ENCOUNTER → 2022-02-04 | Outpatient (CLI) | payer MEDICARE, OTHER, SELFPAY ==
--- NOTE | 2022-02-04 10:33 | MRI_ITS ---
STUDY: MRI LUMBAR SPINE WITHOUT CONTRAST REASON FOR EXAM: Female, 76 years old. RADICULOPATHY, BACK PAIN TECHNIQUE: Standardized fat and water weighted pulse sequences were obtained in the sagittal and axial planes. COMPARISON: X-ray of the lumbar spine dated January 04, 2022 FINDINGS: Normal lumbar lordosis. There is no substantial scoliosis. Normal conus medullaris that terminates at the T12-L1 level. No marrow edema or fracture or compression deformity is present. Small Schmorl''s nodes are present at the T12-L1 and L1-L2 levels. L1-2: A few cyst desiccation with small Schmorl''s nodes on both sides of the disc space. Preserved central disc space height. No posterior disc herniation or bulging. Normal bilateral facet joints. Normal central canal and bilateral lateral recesses. Normal bilateral intervertebral neural foramina. L2-3: A 4.95 x 2.49 cm encapsulated fluid collection has herniated from the posterior aspect of the right L2-L3 facet joint into the adjacent soft tissues and also demonstrates mild cortical erosion of the right side of the spinous process and lamina at L2-L3. The fluid pocket extends inferiorly along the same region of the L3-L4 level. Although there is a cortical erosion no marrow edema or periostitis is present indicating this is related to a long standing chronic process most likely a degenerated or inflamed facet joint synovial cyst or an old abscess. There is no evidence to suggest infection or osteomyelitis. Severe disc space narrowing with a diffuse disc bulge/osteophyte complex. Retrolisthesis of L2 on L3 of 3 mm. Normal bilateral facet joints. Normal central canal and bilateral lateral recesses. Normal bilateral intervertebral neural foramina. L3-4: Retrolisthesis of L3 on L4 of 2 to 3 mm. Moderate to significant disc space narrowing with a diffuse disc bulge/osteophyte complex asymmetric to the right. Superimposed right paracentral disc protrusion. Mild central canal stenosis. Normal bilateral facet joints. Normal bilateral intervertebral neural foramina. L4-5: Moderate disc space narrowing with a diffuse disc bulge/spur complex, asymmetric to the left with left lateral recess stenosis. Normal central canal and right lateral recess. Mild facet joint hypertrophy. Normal bilateral intervertebral neural foramina. L5-S1: Normal endplates. Diffuse disc desiccation with mild to moderate asymmetric disc space narrowing and left side annular bulging. Mild left foraminal stenosis. Mild facet joint hypertrophy. Normal central canal and bilateral lateral recesses. Normal right neural foramen. Normal visualized sacral ala. There is moderate paraspinal muscular atrophy. MRI/Spine Lumbar (Routine) IMPRESSION: 1. A 4.95 x 2.49 cm encapsulated fluid collection has herniated from the posterior aspect of the right L2-L3 facet joint into the adjacent soft tissues and also demonstrates mild cortical erosion of the right side of the spinous process and lamina at L2-L3. The fluid pocket extends inferiorly along the same region of the L3-L4 level. Although there is a cortical erosion no marrow edema or periostitis is present indicating this is related to a long standing chronic process most likely a degenerated or inflamed facet joint synovial cyst or an old abscess. There is no evidence to suggest infection or osteomyelitis. 2. Multilevel degenerative changes, as described above. 3. Electronically Signed: Curtis Charles MD at 13:12 EDT ,
== END | disposition home or self-care (01) ==
LOC: MRI 10:25
PROVIDERS: PCP Internal Medicine; Referring Provider Anesthesiology Pain Medicine; Visit Provider Anesthesiology Pain Medicine
DX: M54.16 Radiculopathy, lumbar region (principal)
CPT/HCPCS: 72148

== ENCOUNTER → 2022-03-18 | Outpatient (CLI) | payer MEDICARE, OTHER, SELFPAY ==
[2022-03-18 15:42] LABS: Absolute Lymphocyte Count 2.24 X10^3/uL (0.83-4.51); Absolute Neutrophil Count 3.7 X10^3/uL (2.0-7.7); Basophil# 0.03 X10^3/uL; Basophil% 0.5 % (0-1); Eosinophil# 0.08 X10^3/uL; Eosinophils% 1.2 % (0-5); Hematocrit 45.1 % (37-47); Hemoglobin 14.6 g/dL (12.0-15.0); Lymphocyte # 2.24 X10^3/ul (0.83-4.51); Lymphocyte % 33.6 % (19-41); Mean Corp Hgb Conc 32.4 g/dL (32-36); Mean Corpuscular Hgb 30.4 pg (27.0-32.0); Mean Corpuscular Volume 93.8 fL (81-99); Mean Platelet Vol. 11.3 fl (6.2-12.0); Monocyte# 0.62 X10^3/uL; Monocyte% 9.3 % (0-10); NRBC Flagged by Analyzer 0 % (0-5); Neutrophil # 3.68 X10^3/uL (2.7-7.7); Neutrophil % 55.2 % (47-70); Platelet Count 233 K/mm3 (150-450); RBC Distribution Width CV 13.7 % (11.6-14.6); Red Blood Count 4.81 M/mm3 (4.2-5.4); White Blood Count 6.7 K/mm3 (4.4-11.0)
[2022-03-18 16:26] LABS: AST(SGOT) 28 U/L (15-37); Alanine Aminotransfer ALT/SGPT 28 U/L (13-56); Albumin, Serum 3.4 g/dL (3.2-5.0); Alkaline Phosphatase 62 U/L (45-117); Anion Gap 5 (5-15); BUN 12 mg/dL (7-18); BUN/Creat Ratio 18.6 RATIO (10-20); Chloride 107 mmol/L (98-107); Creatinine, Serum 0.64 mg/dL (0.55-1.02); EST Glomerular Filtration Rate 95 mL/min (>60); Est Glom Filt Rate - Afr Amer 115 mL/min (>60); Globulin 3.4 g/dL (2.2-4.2); Glucose 98 mg/dL (74-106); Magnesium 2.2 mg/dL (1.6-2.6); Potassium 4.6 mmol/L (3.5-5.1); Protein, Total 6.8 g/dL (6.4-8.2); Sodium Level 141 mmol/L (136-145); T4 Free Direct 0.97 ng/dL (0.76-1.46); Thyroid Stim Hormone (TSH) 0.82 uIU/mL (0.358-3.74)
== END | disposition home or self-care (01) ==
LOC: BIMLAB 11:53
PROVIDERS: PCP Internal Medicine; Visit Provider Internal Medicine
DX: I49.9 Cardiac arrhythmia, unspecified (principal)
CPT/HCPCS: 36415; 80053; 83735; 84439; 84443; 85025

== ENCOUNTER → 2022-05-24 | Outpatient (CLI) | payer MEDICARE, OTHER, SELFPAY ==
--- NOTE | 2022-05-24 09:40 | ART_ITS ---
Reason For Study: Claudication Procedure A bilateral lower extremity continuous wave Doppler with analog waveform analysis,segmental pressures,and ankle brachial indexes without exercise. Left Segmental Pressures Left brachial= 119mmHg. Left posterior tibial artery = 138mmHg. Left dorsalis pedis artery = 136mmHg. Left digit = 85 mmHg. Right Segmental Pressures Right brachial= 115mmHg. Right thigh = 131mmHg. Right calf = 78mmHg. Right posterior tibial artery = 79mmHg. Right dorsalis pedis artery = 81mmHg. Right digit = 59 mmHg. Indices The right ankle brachial index by the posterior tibial artery is 0.66. The right ankle brachial index by the dorsalis pedis is 0.68. The right digital-brachial index is 0.50. The left ankle brachial index by the posterior tibial artery is 1.16. The left ankle brachial index by the dorsalis pedis is 1.14. The left digital-brachial index is 0.71. VL/Lower Ext Art Exam w/o Exercis Interpretation Summary Right LENARD 0.68, moderate arterial insufficiency. Doppler/PVR waveforms and segm ental pressures reveal distal SFA/popliteal disease. Left LENARD 1.16, normal. Doppler/PVR waveforms of the left leg normal at rest. TB I and digit waveforms diminished, pedal/digit disease vs spasm Ordering Physician: Sandie Ramon Referring Physician: Esperanza Johnson Performed By: Rachelle Taylor RDCS/RVT
== END | disposition home or self-care (01) ==
LOC: CVS 09:39
PROVIDERS: PCP Internal Medicine; Visit Provider Physician Assistant Medical
DX: I73.9 Peripheral vascular disease, unspecified (principal); R09.89 Other specified symptoms and signs involving the circulatory and respiratory systems
CPT/HCPCS: 93923

== ENCOUNTER → 2022-06-12 | Outpatient (CLI) | payer MEDICARE, OTHER, SELFPAY ==
[2022-06-12 10:46] LABS: Amphetamine Urine VISTA NEGATIVE (<1000 ng/mL); Barbiturate Urine VISTA NEGATIVE (< 200 ng/mL); Benzodiazepine Urine VISTA NEGATIVE (< 200 ng/mL); Cocaine Urine VISTA NEGATIVE (< 300 ng/mL); Ecstacy Urine VISTA POSITIVE (< 500 ng/mL); Methadone Urine VISTA NEGATIVE (< 300 ng/mL); PCP Urine VISTA NEGATIVE (< 25 ng/mL); THC Urine VISTA POSITIVE (< 50 ng/mL); Vista UDS pH Range 5
== END | disposition home or self-care (01) ==
LOC: LAB 09:49
PROVIDERS: PCP Internal Medicine; Visit Provider Anesthesiology Pain Medicine
DX: F11.20 Opioid dependence, uncomplicated (principal)
CPT/HCPCS: 80307

== ENCOUNTER → 2022-06-19 | Outpatient (CLI) | payer MEDICARE, OTHER, SELFPAY ==
--- NOTE | 2022-06-19 08:27 | CT_ITS ---
STUDY: LOW DOSE CT LUNG CANCER SCREENING REASON FOR EXAM: Female, 77 years old. 50 pack-year history of smoking. The patient quit 10 years ago. RADIATION DOSAGE (If Supplied By Facility): CTDIvol = ( 3.18 ) mGy, DLP = ( 103.64 ) mGycm TECHNIQUE: No contrast was administered. Low dose technique was utilized (average mAS-38 and kVp 120). 1.25 mm axial source images with a slice interval of 1.25-mm were reconstructed in lung windows. 2.5 mm axial source images with a slice interval of 2.5-mm were reconstructed in lung windows. 5.0 mm axial source images with a slice interval of 5.0-mm were reconstructed in soft tissue windows. COMPARISON: None. NODULES: 3 mm calcified granuloma in the peripheral lateral aspect of the right upper lobe as seen on axial image #120. Emphysema: Mild scarring at the lung apices bilaterally. Minimal increased linear markings at the lung bases suggestive of mild atelectasis and/or mild degree of scarring. Endobronchial lesion: None Aorta: Atherosclerotic plaque formation of the aortic arch. CORONARY ARTERIES: Coronary artery calcification coronary artery calcification. Heart: Unremarkable Pulmonary artery: Unremarkable Mediastinal nodes: Small benign-appearing mediastinal lymph nodes. Other chest and abdominal findings: Small hiatal hernia with hiatal hernia repair with a sling catheter. CT/Low Dose CT Lung Screening IMPRESSION: Lung-RADS category 2 - Continue annual screening with LDCT in 12 months. IMPORTANT NOTES FOR USE: ACR Lung-RADS Version 1.1 Assessment Categories Release Date: 2018 Category: Coded 0-4 bases on nodule(s) with highest degree of suspicion. Negative screen is defined as categories 1 and 2; a positive screen is defined as categories 3 and 4. Category 3 and 4A nodules that are unchanged on interval CT should be coded as category 2, and individuals returned to screening in 12 months. Category 4X: Category 3 or 4 nodules with additional imaging findings that increase the suspicion of lung cancer, such as spiculation, GGN that doubles in size in 1 year, enlarged lymph notes, etc. Category Modifiers: S (significant finding unrelated to lung cancer) Electronically Signed: Geovanni Sarkar MD at 9:04 EST ,
--- NOTE | 2022-06-19 08:32 | CDU_ITS ---
Reason For Study: PAD Rt. Velocities/BP Lt. Velocities/BP Prox CCA 71.1/9.7 cm/sec. Prox CCA 79.6/8.4 cm/sec. Mid CCA 74.3/14.7 cm/sec. Mid CCA 63.9/14.7 cm/sec. Dist CCA 58.2/11.9 cm/sec. Dist CCA 69.5/12.8 cm/sec. Prox ICA 67.7/14.9 cm/sec. Prox ICA 84.2/19.3 cm/sec. Mid ICA 86.5/20.1 cm/sec. Mid ICA 62.6/21.5 cm/sec. Dist ICA 74.3/20.2 cm/sec. Dist ICA 123.5/21.2 cm/sec. Rt. ICA/CCA = 1.2. Lt. ICA/CCA = 1.9. Prox ECA 76.1/8.1 cm/sec. Prox ECA 81.5/4.7 cm/sec. Rt. Vert. 16.9/3.7 cm/sec. Lt. Vert. 36.9/10.6 cm/sec. Right Extracranial There is intimal thickening but no significant atherosclerotic plaque noted in the right common carotid artery. There is heterogeneous, irregular atherosclerotic plaque noted in the right internal carotid artery. The atherosclerotic plaque causes acoustic shadowing. The right internal carotid artery is very tortuous. There is heterogeneous, irregular atherosclerotic plaque noted in the right external carotid artery. Antegrade flow is noted in the right vertebral artery. Left Extracranial There is heterogeneous, irregular atherosclerotic plaque noted in the left common carotid artery. There is heterogeneous, irregular atherosclerotic plaque noted in the left internal carotid artery. The atherosclerotic plaque causes acoustic shadowing. The left internal carotid artery is very tortuous. There is heterogeneous, irregular atherosclerotic plaque noted in the left external carotid artery. Antegrade flow is noted in the left vertebral artery. Procedure Carotid Duplex 11656. This is a Carotid Duplex examination using B-mode, color flow and specral Doppler. The exam was diagnostic. The study was technically difficult. Exam performed in department. VL/Carotid Duplex Ultrasound Interpretation Summary The degree of stenosis in the right internal carotid artery appears to be <50% based upon velocity criteria, though heavily calcified plaque and acoustic shadowing are present. M ild (<50%) stenosis left extracranial internal carotid. Flow within the vertebral arteries is anteg rade bilaterally. Ordering Physician: Esperanza Johnson Referring Physician: Esperanza Johnson M.D. Performed By: Stanislaw Alcantar RVT
--- NOTE | 2022-06-19 08:39 | RAD_ITS ---
STUDY: X-RAY - LUMBAR SPINE REASON FOR EXAM: Female, 77 years old. PAIN TECHNIQUE: 3 view(s) of the lumbar spine were obtained. COMPARISON: Comparison is made with prior study dated 01/04/2022. FINDINGS: Normal lumbar lordosis. There is a levoscoliosis of the lumbar spine. There is a normal alignment of the vertebrae. There is multilevel endplate spondylosis of the lumbar vertebrae. There is multi-level degenerative disc disease with multi-level disc space narrowing. There is atherosclerotic calcification of the abdominal aorta without a demonstrated aneurysm. A bariatric device projects over the left upper quadrant. Prior cholecystectomy. RAD/Lumbar Spine 2 or 3 Views IMPRESSION: Degenerative changes of the spine, as detailed above. Stable examination. Electronically Signed: Geovanni Sarkar MD at 9:29 EST ,
== END | disposition home or self-care (01) ==
LOC: CT 08:24
PROVIDERS: PCP Internal Medicine; Referring Provider Anesthesiology Pain Medicine; Visit Provider Internal Medicine
DX: Z12.2 Encounter for screening for malignant neoplasm of respiratory organs (principal); I73.9 Peripheral vascular disease, unspecified; M47.896 Other spondylosis, lumbar region; M47.815 Spondylosis without myelopathy or radiculopathy, thoracolumbar region; R42 Dizziness and giddiness; Z87.891 Personal history of nicotine dependence
CPT/HCPCS: 71271; 72100; 93880

== ENCOUNTER 2022-07-05 10:12 | Outpatient (RCR) | payer MEDICARE, OTHER, SELFPAY ==
[2022-06-28 12:42] LABS: International Normalized Ratio 1.5; Prothrombin Time (Protime)PT. 17.3 SECONDS (11.7-14.9)
[2022-07-05 12:27] LABS: International Normalized Ratio 1.9; Prothrombin Time (Protime)PT. 21.3 SECONDS (11.7-14.9)
== END 2022-07-09 23:59 ==
LOC: BIMLAB 10:12
PROVIDERS: PCP Internal Medicine; Referring Provider Internal Medicine Cardiovascular Disease; Visit Provider Internal Medicine Cardiovascular Disease
DX: I48.0 Paroxysmal atrial fibrillation (principal); Z79.01 Long term (current) use of anticoagulants
CPT/HCPCS: 36415; 85610

== ENCOUNTER → 2022-07-12 | Outpatient (CLI) | payer MEDICARE, OTHER, SELFPAY ==
--- NOTE | 2022-07-12 11:36 | NM_ITS ---
CLINICAL: 77-year-old female with history of clinical gastroparesis. SEMI-SOLID PHASE 99m Tc SULFUR COLLOID GASTRIC EMPTYING STUDY COMPARISON: None available FINDINGS: The patient was administered 1.1 mCi of 99m Tc sulfur colloid mixed with oatmeal and consumed per os. Image acquisitions in the anterior-posterior projections were obtained for 60 minutes. There is prompt visualization of the stomach. There is no gastroesophageal reflux identified. First order kinetics are maintained throughout the duration of the acquisitions. The extrapolated T ? emptying was calculated to be 96.8 minutes, (Normal: 12-56 minutes). NM/Gastric Emptying Study IMPRESSION: 1. ABNORMAL 99m Tc sulfur colloid semi-solid phase (oatmeal) gastric emptying imaging examination. A. There is delayed semi-solid phase gastric emptying compared to normal controls. (Yoli et al, J Nucl Med Tech 38: 186, 2010). Electronically Signed: Darryl Khan, at 11:49 EST ,
== END | disposition home or self-care (01) ==
LOC: NM 11:34
PROVIDERS: PCP Internal Medicine; Visit Provider Internal Medicine Gastroenterology
DX: K31.84 Gastroparesis (principal)
CPT/HCPCS: 78264; A9541

== ENCOUNTER 2022-08-02 09:23 | Outpatient (RCR) | payer MEDICARE, OTHER, SELFPAY ==
[2022-07-12 12:20] LABS: International Normalized Ratio 1.9; Prothrombin Time (Protime)PT. 21.1 SECONDS (11.7-14.9)
[2022-07-19 12:51] LABS: Prothrombin Time (Protime)PT. 22.7 SECONDS (11.7-14.9)
[2022-08-02 12:34] LABS: International Normalized Ratio 2.1; Prothrombin Time (Protime)PT. 23.6 SECONDS (11.7-14.9)
== END 2022-08-06 23:59 ==
LOC: BIMLAB 09:23
PROVIDERS: Internal Medicine Gastroenterology; PCP Internal Medicine; Referring Provider Internal Medicine Cardiovascular Disease; Visit Provider Internal Medicine Cardiovascular Disease
DX: I48.0 Paroxysmal atrial fibrillation (principal); Z79.01 Long term (current) use of anticoagulants; K75.81 Nonalcoholic steatohepatitis (NASH); K74.60 Unspecified cirrhosis of liver
CPT/HCPCS: 36415; 82140; 85610

== ENCOUNTER 2022-09-06 11:40 | Outpatient (RCR) | payer MEDICARE, OTHER, SELFPAY ==
[2022-09-06 12:18] LABS: International Normalized Ratio 2.7; Prothrombin Time (Protime)PT. 28.4 SECONDS (11.7-14.9)
== END 2022-09-06 23:59 ==
LOC: BIMLAB 11:40
PROVIDERS: PCP Internal Medicine; Referring Provider Internal Medicine Cardiovascular Disease; Visit Provider Internal Medicine Cardiovascular Disease
DX: I48.0 Paroxysmal atrial fibrillation (principal); Z79.01 Long term (current) use of anticoagulants
CPT/HCPCS: 36415; 85610

== ENCOUNTER 2022-09-25 05:29 | Day surgery (SDC) | payer MEDICARE, OTHER, SELFPAY ==
[2022-09-25] VITALS (7 sets, daily range): BP systolic 108–116; BP diastolic 55–70; PULSE 58–76; RESP 14–18; TEMP 36.2–36.4; O2SAT 92–99; BMI 35.8
[2022-09-25 05:55] LABS: INR Fingerstick 1.5
[2022-09-25] MEDS: Lactated Ringers 1,000 ML 15 ML IV (06:02)
--- NOTE | 2022-09-25 06:30 | IMM_PTH ---
PATIENT: ERIK CASE LOC: EN U#:[id number] AGE/SX: 77/F ROOM: RE09/25/[address]: Dr. Lukas Killian DO : 1945 BED: DIS: 09/25/2022 SPEC #: [id number] RECD: 09/25/22 14:04 STATUS: KHADAR REQ #: [id number] MARY: 09/25/22 06:[address]: Lukas Killian DEPT: IMMUNOHISTOCHEMISTRY RECD BY: Chrissy Lewis ENTERED: 09/25/22 14:05 SP TYPE: IMMUNO OTHR DR: Dr. Esperanza Johnson MD Tissues: A - Stomach, NOS Procedures: H Pylori (initial) PHYSICIAN & INSTITUTION [place] [id number] SPECIMEN INFORMATION: Tissue Source: A ? Antrum biopsy Clinical Info: Delayed gastric emptying, CONNOR, cirrhosis Specimen Number: [id number] CPT code: 06115 METHODOLOGY: Deparaffinized sections of prefer/formalin-fixed tissue or PAP/DQ stained slides are incubated with monoclonal/polyclonal antibodies/oligonucleotide probes. Localization is made via biotin free immunoperoxidase method. Appropriate controls are performed and reacted as expected. Results on target cell population are indicated in the following table: RESULTS: ANTIBODY / CLONE RESULT Block A H Pylori (polyclonal) negative These tests were developed and their performance characteristics determined by [facility]. They may not have been cleared or approved by the [place]. Food and Drug Administration. The FDA has determined that such clearance or approval is not necessary. The above immunohistochemical/dualISH markers are ordered and reviewed by the Pathologist. INTERPRETATION: A. Antrum, biopsy: Negative for Helicobacter pylori organisms. AM:aleksander 09/26/2022
--- NOTE | 2022-09-25 06:30 | EGD_PTH ---
PATIENT: ERIK CASE LOC: EN U#:[id number] AGE/SX: 77/F ROOM: RE09/25/[address]: Dr. Lukas Killian DO : 1945 BED: DIS: 09/25/2022 SPEC #: [id number] RECD: 09/25/22 12:55 STATUS: KHADAR REGil #: [id number] MARY: 09/25/22 06:[address]: Lukas Killian DEPT: SURGICAL PATHOLOGY RECD BY: Betsy Gambino ENTERED: 09/25/22 13:48 SP TYPE: EGD BIOPSY PENNY DR: Dr. Esperanza Johnson MD Tissues: A - Gastric mucous membrane B - Esophagus, NOS Procedures: Special Stain Group II Surgery Specimen Level IV Alcian Blue/PAS (control) HEADER OPERATION: EGD ([facility] [place]) PRE-OP DIAGNOSIS: Delayed gastric emptying, CONNOR, cirrhosis TISSUE SUBMITTED: A ? Antrum biopsy, H. pylori and path, B ? Distal esophagus biopsy MICROSCOPIC DIAGNOSIS A. Gastric antrum, biopsy: Chronic gastritis. See comment. B. Distal esophagus, biopsy: Gastroesophageal junctional mucosa with mild chronic inflammation. Consistent with reflux esophagitis. No evidence of goblet cell metaplasia. See comment. AM:aleksander 09/26/2022 COMMENT A. The results of immunohistochemistry for Helicobacter pylori will be reported separately ([id number]). B. Alcian blue/PAS stain with matched control supports the above diagnosis. MICROSCOPIC DESCRIPTION Slides are reviewed. GROSS DESCRIPTION A - Received in fixative is one container labeled with the patient's name and designated antrum biopsy. The specimen consists of multiple irregular fragments of light bowers soft tissue that in aggregate measure 1.0 x 0.3 x 0.1 cm. The specimen is totally submitted in one cassette. B - Received in fixative is one container labeled with the patient's name and designated distal esophagus biopsy. The specimen consists of one irregular fragment of light bowers soft tissue that measures 0.4 x 0.3 x 0.1 cm. The specimen is totally submitted in one cassette. / NAFISA:aleksander 09/25/2022 TC:3 CPT: 72645 x2, 56689
--- NOTE | 2022-09-25 06:36 | HP.PCM_ITS ---
History and Physical Date of Admission: 09/25/22 77 F who presents to the office today for Follow up visit. Soumya established with this clinic 08.16.21 with referral from her PCP for CONNOR diagnosed in 2014. Has been established with a specialist from [facility], however he has moved to [place]. She has increased her exercise and improved her diet. Not currently taking medications. Currently enrolled with [employer] which she has lost 40lbs. ?Current weight is 179lbs. ?Diet changes have included reduction of red meat with increase of chicken vegetables, salads, soup. Prefers to drink decaf coffee during the day, water, diet root beer. ?PMH CAD, atypical ductal hyperplasia of breast 2010, cardia dysrhythmia, depression, anxiety, fibromyalgia, osteoarthrosis, reflux, sleep apnea. s/p cholecystectomy. [facility] Dr. Forrest for paroxysmal SVT, atherosclerosis of [place] coronary artery, hyperlipidemia. ?[facility] note 02.23.21 Latoya is enrolled with [employer] to lose weight and has been walking for exercise, though inconsistently. Concern for hepatic encephalopathy r/t sleep disturbance and Xifaxan was ordered. MELD score last calculated at 6 on 02.23.21. US RUQ last performed 02.23.21. ?EGD last performed with [facility] .07.28 with normal exam. ?US RUQ 02.23.21 with [facility] found liver with coarse echotexture and nodular surface contour without lesions. Cirrhotic liver without lesions. Biochemical workup CRP, ESR, CPK, ferritin, CBC, ammonia WNL Elevated LDH 259 PCP visit 12.25.21 where she reports increased difficulty doing daily tasks (ADD Dx), she was started on buproprion for ADD and depression MELD ? Fib 4 02.23.21 6 06.27.21 6? 1.35 11.23.21 6 03.18.22 N/A ? 1.73 Plan last visit 11.23.21: CONNOR cirrhosis ? biochemical workup Reports COVID in early January with ongoing issues: heart issues with possible SVT/AFib, established with [facility] who put her on a heart monitor and doubled her atenolol and started Eliquis and will be seeing them next month. Additional symptoms since COVID infection include brain fog, word finding difficulty, constipation unrelieved with stool softeners, bloating, nausea and periodic emesis without preceding nausea. Reports weight gain of 12lbs since infection. Balance has been altered for the last year, no falls. No jaundice. Reports that he sleep pattern is disturbed but feels it is related to ?my two little yappy dogs that sleep with me?. Normal pattern is falling asleep approximately 0100 and wakes around 0500. She is establishing with [facility] next week. ROS Const Constitutional: No body ache, chills, excessive sweating, fatigue, fever(s), frequent falls, headache(s), snoring, weakness, weight change, sleep problems or change in appetite Eyes Eyes: No blurry vision, change in vision, eye pain or Light sensitivity ENT ENT: No abnormal hearing, ear or mastoid pain, tinnitus, nasal congestion, headache(s), neck pain or sore throat Resp Respiratory: No cough, shortness of breath, snoring or wheezing Cardio Cardiology: No chest pain at rest, chest pain with exertion, excessive sweating, shortness of breath, dyspnea on exertion, lightheadedness, orthopnea or palpitations Gastro GI: No abdominal pain, change in bowel habits, constipation, cramping, diarrhea, nausea/dyspepsia or vomiting Genitourinary-Female: No burning urination, painful urination, urinary incontinence, urinary frequency or abnormal vaginal bleeding Musc Musculoskeletal: No abnormal gait, joint pain, back pain, limited range of motion, neck pain, numbness or tingling Skin Skin: No dry skin, redness, lesions, itchy eyes, rash or wounds Neuro Neurology: No abnormal gait, abnormal hearing, abnormal speech, dizziness, weakness, frequent falls, headache(s), memory loss, numbness or tingling Psych Psychiatric: No anxiety, No change in appetite, No depression, No memory loss and No Thoughts of harming yourself/Others Endo Endocrine: No cold intolerance, excessive sweating, fatigue, flushing, heat intolerance, increased thirst/drinking, increased hunger or weight change Aller/Imm Allergy/Immunologic: No itchy eyes, seasonal allergy symptoms, hives or wheezing Matthew/Lymp Hematologic/Lymphatic: No easy bleeding, easy bruising or enlarged lymph nodes Exam Const General: cooperative, comfortable and no acute distress Orientation: alert, awake and oriented x3 [facility] Head: normal to inspection, normocephalic and atraumatic Ears: hearing grossly normal bilaterally Neck Neck: normal visual inspection, full ROM and supple Neck mass: No Thyroid: thyroid normal Resp Effort & Inspection: normal respiratory effort and able to speak in complete sentences Auscultation: Bilateral: Clear to Auscultation Cardio Rate: regular rate Rhythm: abnormal rhythm irregularly irregular Heart Sounds: S1 normal and S2 normal GI Palpation: soft (Nontender, no palpable organomegaly) Neuro General: patient alert, patient awake, patient oriented x3, moves all extremities and CN's II-XI intact bilaterally Extrem General: no clubbing, cyanosis or edema Psych Appearance: grossly normal Mental Status: mental status grossly normal Mood: congruent mood Affect: normal affect Quality Reporting Tobacco Screening ([facility] 138) Smoking Status: Former smoker Assessment and Plan Assessment and Plan (1) 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 Her current meld is 6.? 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 She is not having any signs of encephalopathy, GI bleeding, ascites.? She is suffering some mild constipation and we will give her a scheduled dose of lactulose to take on a daily basis if needed.? We will need to check her ammonia level, CBC, CMP and INR to calculate her new meld. (2) Delayed gastric emptying: ?Status:?Acute ?Plan: She did have episodes of nausea and vomiting that I think is possibly associated with increased beta-batsheva therapy due to her new diagnosis of A. fib flutter.? She will get a gastric emptying study prior to us giving her any medical therapy for possible delayed gastric emptying. (3) Obesity (BMI 30-39.9): ?Status:?Chronic ? ? ? Orders: Orders Albumin, Serum Today K74.60 - Unspecified cirrhosis of liver, K75.81 - Nonalcoholic steatohepatitis (CONNOR) ? Comprehensive Metabolic Profil Today K74.60 - Unspecified cirrhosis of liver, K75.81 - Nonalcoholic steatohepatitis (CONNOR) ? CRP Today K74.60 - Unspecified cirrhosis of liver, K75.81 - Nonalcoholic steatohepatitis (CONNOR) ? LDH Today K74.60 - Unspecified cirrhosis of liver, K75.81 - Nonalcoholic steatohepatitis (CONNOR) ? Prothrombin Time w/INR Today I47.1 - Supraventricular tachycardia, K74.60 - Unspecified cirrhosis of liver, K75.81 - Nonalcoholic steatohepatitis (CONNOR) ? CBC W/Diff, Automated Today K74.60 - Unspecified cirrhosis of liver, K75.81 - Nonalcoholic steatohepatitis (CONNOR), M79.7 - Fibromyalgia ? Erythrocyte Sed Rate Today K74.60 - Unspecified cirrhosis of liver, K75.81 - Nonalcoholic steatohepatitis (CONNOR) ? Ammonia Today K74.60 - Unspecified cirrhosis of liver, K75.81 - Nonalcoholic steatohepatitis (CONNOR) ? Gastric Emptying Study Today K31.84 - Gastroparesis ? Medications: New lactulose 20 grams (30 mL) PO BID 1,500 mL 0RF ? ? I have examined the patient and the H&P has been reviewed. There are no clinical changes since date of exam.
--- NOTE | 2022-09-25 07:00 | OP.EGD_ITS ---
Patient Name: Latoya Bonilla Procedure Date: 09/25/2022 6:41 AM Date of : 1945 Age: 77 Procedure: Upper GI endoscopy Indications: Functional Dyspepsia, Cirrhosis with suspected esophageal varices Providers: Lukas Killian DO Referring MD: Lukas Killian DO Medicines: Monitored Anesthesia Care Patient Profile: This is a 77 year old female. Refer to note in patient chart for documentation of history and physical. Patient has symptoms of chronic abdominal distention and chronic epigastric abdominal pain. She is status post EGD for biopsy within the past six months. Complications: No immediate complications. Procedure: Pre-Anesthesia Assessment: - Prior to the procedure, a History and Physical was performed, and patient medications and allergies were reviewed. The risks and benefits of the procedure and the sedation options and risks were discussed with the patient. All questions were answered and informed consent was obtained. Patient identification and proposed procedure were verified by the physician. Mental Status Examination: normal. CV Examination: normal. Prophylactic Antibiotics: The patient does not require prophylactic antibiotics. Prior Anticoagulants: The patient has taken no previous anticoagulant or antiplatelet agents. After reviewing the risks and benefits, the patient was deemed in satisfactory condition to undergo the procedure. The anesthesia plan was to use monitored anesthesia care (MAC). Immediately prior to administration of medications, the patient was re-assessed for adequacy to receive sedatives. The heart rate, respiratory rate, oxygen saturations, blood pressure, adequacy of pulmonary ventilation, and response to care were monitored throughout the procedure. The physical status of the patient was re-assessed after the procedure. After obtaining informed consent, the endoscope was passed under direct vision. Throughout the procedure, the patient's blood pressure, pulse, and oxygen saturations were monitored continuously. The Endoscope was introduced through the mouth, and advanced to the second part of duodenum. The upper GI endoscopy was accomplished without difficulty. The patient tolerated the procedure well. Scope In: 6:47:00 AM Scope Out: 6:51:07 AM Total Procedure Duration Time 0 hours 4 minutes 7 seconds Findings: No gross lesions were noted in the entire esophagus. The Z-line was irregular and was found 40 cm from the incisors. Biopsies were taken with a cold forceps for histology. Verification of patient identification for the specimen was done. Estimated blood loss was minimal. Evidence of a patent vertical banded gastroplasty was found. A gastric pouch with a normal size was found containing a bezoar. Evidence of a Silastic band was not seen and appeared intact. This was traversed. Diffuse moderately erythematous mucosa without bleeding was found in the gastric antrum. Biopsies were taken with a cold forceps for histology. Verification of patient identification for the specimen was done. Estimated blood loss was minimal. The first portion of the duodenum was normal. Impression: - No gross lesions in esophagus. - Z-line irregular, 40 cm from the incisors. Biopsied. - Patent vertical banded gastroplasty with a normal-sized pouch and band appears intact. - Erythematous mucosa in the antrum. Biopsied. - Normal first portion of the duodenum. Recommendation: - Discharge patient to home. - Resume previous diet. - Continue present medications. Procedure Code(s): --- Professional --- 71216, Esophagogastroduodenoscopy, flexible, transoral; with biopsy, single or multiple CPT copyright 2017 [employer]. All rights reserved. The codes documented in this report are preliminary and upon electric system operator review may be revised to meet current compliance requirements. Lukas Killian DO 09/25/2022 6:59:52 AM This report has been signed electronically. Number of Addenda: 0 Note Initiated On: 09/25/2022 6:41 AM
--- NOTE | 2022-09-25 07:00 | OP.CCLET_ITS ---
09/25/2022 Esperanza Johnson Re : Upper GI endoscopy procedure for Latoya Bonilla Dear Alex This procedure was performed on Sunday, September 25, 2022. My impressions and recommendations are as follows: Impressions : - No gross lesions in esophagus. - Z-line irregular, 40 cm from the incisors. Biopsied. - Patent vertical banded gastroplasty with a normal-sized pouch and band appears intact. - Erythematous mucosa in the antrum. Biopsied. - Normal first portion of the duodenum. Recommendations : - Discharge patient to home. - Resume previous diet. - Continue present medications. My findings are described in the full procedure note, which is enclosed. If I can be of further assistance, please feel free to contact me at . Sincerely, Lukas Friend, 09/25/2022 6:59:52 AM This report has been signed electronically.
== END 2022-09-25 07:49 | disposition home or self-care (01) ==
LOC: EN 05:29 → AC 05:30
PROVIDERS: PCP Internal Medicine; Referring Provider Internal Medicine; Visit Provider Internal Medicine Gastroenterology
PROC: 0DJ08ZZ Inspection of Upper Intestinal Tract, Via Natural or Artificial Opening Endoscopic (ICD-10-PCS; CPT 43235; principal; 2022-09-25 06:25)
DX: K21.00 Gastro-esophageal reflux disease with esophagitis, without bleeding (principal); K74.60 Unspecified cirrhosis of liver; I48.0 Paroxysmal atrial fibrillation; K29.50 Unspecified chronic gastritis without bleeding; K31.89 Other diseases of stomach and duodenum; E66.9 Obesity, unspecified; I25.10 Atherosclerotic heart disease of native coronary artery without angina pectoris; M50.30 Other cervical disc degeneration, unspecified cervical region; M51.36 Other intervertebral disc degeneration, lumbar region; Z86.16 Personal history of COVID-19; Z79.82 Long term (current) use of aspirin; Z79.01 Long term (current) use of anticoagulants; Z79.899 Other long term (current) drug therapy; Z87.891 Personal history of nicotine dependence; Z68.35 Body mass index [BMI] 35.0-35.9, adult
CPT/HCPCS: 43239; 36416; 85610; 88305; 88313; 88342; J7120; J2405

== ENCOUNTER 2022-10-03 10:29 | Outpatient (RCR) | payer MEDICARE, OTHER, SELFPAY ==
[2022-10-03 12:38] LABS: International Normalized Ratio 2.5; Prothrombin Time (Protime)PT. 26.8 SECONDS (11.7-14.9)
== END 2022-10-06 23:59 ==
LOC: BIMLAB 10:29
PROVIDERS: PCP Internal Medicine; Referring Provider Internal Medicine Cardiovascular Disease; Visit Provider Internal Medicine Cardiovascular Disease
DX: I48.0 Paroxysmal atrial fibrillation (principal); Z79.01 Long term (current) use of anticoagulants
CPT/HCPCS: 36415; 85610

== ENCOUNTER 2022-11-08 10:50 | Outpatient (RCR) | payer MEDICARE, OTHER, SELFPAY ==
[2022-11-08 12:46] LABS: Erythrocyte Sedimentation Rate 15 mm/hr (0-30)
[2022-11-08 12:47] LABS: Absolute Lymphocyte Count 1.42 X10^3/uL (0.83-4.51); Absolute Neutrophil Count 3.6 X10^3/uL (2.0-7.7); Basophil# 0.02 X10^3/uL; Basophil% 0.4 % (0-1); Eosinophil# 0.04 X10^3/uL; Eosinophils% 0.7 % (0-5); Hematocrit 42.5 % (37-47); Hemoglobin 14.3 g/dL (12.0-15.0); Lymphocyte # 1.42 X10^3/ul (0.83-4.51); Lymphocyte % 25.6 % (19-41); Mean Corp Hgb Conc 33.6 g/dL (32-36); Mean Corpuscular Hgb 29.8 pg (27.0-32.0); Mean Corpuscular Volume 88.5 fL (81-99); Mean Platelet Vol. 10.7 fl (6.2-12.0); NRBC Flagged by Analyzer 0 % (0-5); Neutrophil # 3.56 X10^3/uL (2.7-7.7); Neutrophil % 64.1 % (47-70); Platelet Count 218 K/mm3 (150-450); RBC Distribution Width CV 13.2 % (11.6-14.6); White Blood Count 5.6 K/mm3 (4.4-11.0)
[2022-11-08 12:54] LABS: International Normalized Ratio 3.6; Prothrombin Time (Protime)PT. 36.2 SECONDS (11.7-14.9)
[2022-11-08 13:27] LABS: AST(SGOT) 33 U/L (15-37); Alanine Aminotransfer ALT/SGPT 30 U/L (13-56); Albumin, Serum 3.5 g/dL (3.2-5.0); Alkaline Phosphatase 61 U/L (45-117); Anion Gap 6 (5-15); BUN 15 mg/dL (7-18); BUN/Creat Ratio 20.4 RATIO (10-20); CRP < 2.90 mg/L (0.0-3.0); Calcium,Total 8.7 mg/dL (8.5-10.1); Chloride 107 mmol/L (98-107); Creatinine, Serum 0.74 mg/dL (0.55-1.02); EST Glomerular Filtration Rate 81 mL/min (>60); Est Glom Filt Rate - Afr Amer 98 mL/min (>60); Ferritin 32 ng/mL (8-252); Globulin 3.4 g/dL (2.2-4.2); Glucose 104 mg/dL (74-106); LDH 210 U/L (84-246); Potassium 4.4 mmol/L (3.5-5.1); Protein, Total 6.9 g/dL (6.4-8.2); Sodium Level 140 mmol/L (136-145)
[2022-11-11 16:09] LABS: Anti-Centromere B Ab <0.2 AI (0.0-0.9); Anti-Chromatin <0.2 AI (0.0-0.9); Anti-Jo <0.2 AI (0.0-0.9); Anti-Mitochondrial AB <20.0 Units (0.0-20.0); Anti-Scleroderma-70 AB <0.2 AI (0.0-0.9); Anti-dsDNA Ab 1 IU/mL (0-9); RNP Ab 0.2 AI (0.0-0.9); SJOGREN'S Anti-SS-A test < 0.2 AI (0.0-0.9); SJOGREN'S Anti-SS-B test < 0.2 AI (0.0-0.9); Smith Ab <0.2 AI (0.0-0.9)
[2022-11-14 07:08] LABS: AFP, Tumor Marker 3.3 ng/mL (0.0-9.2); Angiotensin Convert Enzyme 35 U/L (14-82); Anti-Smooth Muscle ABS 6 Units (0-19); Ceruloplasmin 25.2 mg/dL (19.0-39.0); Copper, Serum or Plasma 123 ug/dL (80-158); Cytoplasmic Ab (C-ANCA) <1:20 titer (Neg:<1:20); HEPATITIS B SURFACE AG Negative (Negative); Haptoglobin 122 mg/dL (42-346); Hep C Antibodies Non Reactive (Non Reactive); Hepatitis A IgM Antibody Negative (Negative); Hepatitis B Core AB IgM Negative (Negative); Perinuclear Ab (P-ANCA) <1:20 titer (Neg:<1:20)
== END 2022-12-06 23:59 ==
LOC: BIMLAB 10:50
PROVIDERS: PCP Internal Medicine Gastroenterology; Referring Provider Internal Medicine; Visit Provider Internal Medicine Cardiovascular Disease
DX: I48.0 Paroxysmal atrial fibrillation (principal); Z79.01 Long term (current) use of anticoagulants; K75.81 Nonalcoholic steatohepatitis (NASH); K74.60 Unspecified cirrhosis of liver; I47.1 Supraventricular tachycardia; M79.7 Fibromyalgia; E78.2 Mixed hyperlipidemia
CPT/HCPCS: 36415; 80053; 80074; 82105; 82140; 82164; 82390; 82525; 82728; 83010; 83516; 83615; 85025; 85610; 85652; 86140; 86225; 86235; 86256

== ENCOUNTER 2022-11-18 08:30 | Outpatient (RCR) | payer MEDICARE, OTHER, SELFPAY ==
--- NOTE | 2022-10-07 10:58 | HP.PTEVAL_ITS ---
Patient's Visit Information ERIK CASE is a 77 year old F referred to Physical Therapy by Dr. Esperanza Johnson MD with a diagnosis of R leg pain and DDD lumbar.. Date of Evaluation: 10/07/22 Physical Therapist: Reymundo Cowart, DPT, OCS, CSCS - Visit Plan Frequency: 2x /Week Duration: 4-6 Weeks Plan: 2x/week for 4 weeks for. 1. geach mat based NS strength program to HEP. 2. Teach gym machine base LE/postural and core strength to I. - Subjective Dr. Johnson sent over hear. Long covid exacerbates all issues in PVD in legs. Weakness in R LE and had DDD in LB, will try therapy before other studies. has had scans of back and has had therapy before at [facility] and bad experience. R leg has been intermittently weak but got better and long covid made it worse. Can now walk 5 minutes and then gets pain in calf sometimes(bought [employer] to work on at home and doctor wants her to walk through pain. ) but then R leg will buckle, last time in July due R leg buckling. Also fell one time in bedroom when really tired. LBP is ther constantly due to DDD, OA and FM and DDD in neck and LB. has seen Basali for injections but cannot have them right now. Has tens that she uses. Does chair yoga and fis at home. - Pain LBP Pain Intensity (Out of 10): 1 Pain Intensity Range: 0, 3 Comment: R leg aches after ex.mild due to PVD - Objective walks I with slight L trendelenberg that worsens as she is on her feet longer.. Transfers I, steps weak on R and requires rail but can do. Strength: L quad 60 # R 50#. L HS 40 and R 25#. Hip flexor L 38# and 30# R. Flexibility and ROM LE WFL. ankle strength 4/5 without asymmetries. Sensation LE WNL to gross light touch in B LE. reflexes 0/3 patella and achilles. Core strength 3+ abs and ext 3. Lots of pelvic tilt. - Balance/Special Test Scores Functional Gait Assessment Score: 26 % Disability: 13.3400 Lower Extremity Functional Score: 37 - Goals Goal 1:: I appropr HEP for NS, core adn general LE/postural strength in gym to silver sneakers. Goal Time Frame: 4-6 Weeks Goal 2:: Pain in LB and r LE 0-1/10 at worst Goal Time Frame: 4-6 Weeks Goal 3:: LE strength 10% improved in R quad and hip flexor and HS. Goal Time Frame: 4-6 Weeks Goal 4:: Pt feel 75% better in overall strength R LE and walk 10 minutes without increased symptoms or weakness. Goal Time Frame: 4-6 Weeks - Rehabilitation Potential Physical Therapy Diagnosis: DDD and weakness R LE. Rehabilitation Potential: Fair - Anticipated Interventions Patient/Client Instruction: Educate patient on: Condition, Plan of Care For the Purpose of:: To decrease pain, To improve nutrient delivery to tissue, To improve muscle performance and motor function, To increase tolerance to activity/condition/position, To improve ability of physical actions for home/community/work/leisure, To improve gait and locomotor functions, To improve safety Therapeutic Exercise to Include: Strength training, Passive ROM, Active ROM For the Purpose of:: To improve nutrient delivery to tissue, To improve muscle performance and motor function, To improve ability of physical actions for home/community/work/leisure, To improve safety Thank you for the opportunity to evaluate your patient. For Medicare and Medicare HMO plans, please review the plan of care and approve it. It will need to be FAXED BACK to us at [phone] for Medicare purposes. For Medicare only, by signing this I certify the plan of care. Please let me know if there are questions or concerns regarding this plan of care. Physician Signature: Date:
--- NOTE | 2022-11-08 09:44 | HP.PTREVAL ---
Dr. Esperanza Johnson MD, It has been my pleasure to treat ERIK CASE over the last 7 visits for R leg pain and DDD lumbar.. Please see the progress note below for an update on the physical therapy plan of care! Subjective: Better but R leg still weak and painful. Walking 1/4 mile before fatigue in R LE took over and became fearful. Improving distance. will f/u with doctor next week. Doing core exercises at home. Objective/Function: up from floor with L leg and table support, not with R. 25# hip flexion. 33# HSC R. and 36# quad strength R. Walking well and feeling better overall but R leg not getting stronger adn still her main sticking point. To doctor next week and wants to hold on more visits until after that but could benefit from 2 more weeks to gain I with gym ex as she is not feeling like she can do them herself yet. 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 Balance/Gait/Functional tests - Balance/Special Test Scores Functional Gait Assessment Score: 26 % Disability: 13.3400 Lower Extremity Functional Score: 38 Goals Goal 1:: I appropr HEP for NS, core adn general LE/postural strength in gym to silver sneakers. Goal Time Frame: 4-6 Weeks Goal Progress: Progressing Goal 2:: Pain in LB and r LE 0-1/10 at worst Goal Time Frame: 4-6 Weeks Goal Progress: Progressing Goal 3:: LE strength 10% improved in R quad and hip flexor and HS. Goal Time Frame: 4-6 Weeks Goal Progress: Not Progressing Goal 4:: Pt feel 75% better in overall strength R LE and walk 10 minutes without increased symptoms or weakness. Goal Time Frame: 4-6 Weeks Goal Progress: 70% Anticipated Interventions Patient/Client Instruction: Educate patient on: Condition, Plan of Care For the Purpose of:: To decrease pain, To improve nutrient delivery to tissue, To improve muscle performance and motor function, To increase tolerance to activity/condition/position, To improve ability of physical actions for home/community/work/leisure, To improve gait and locomotor functions, To improve safety Therapeutic Exercise to Include: Strength training, Passive ROM, Active ROM For the Purpose of:: To improve nutrient delivery to tissue, To improve muscle performance and motor function, To improve ability of physical actions for home/community/work/leisure, To improve safety Please do not hesitate to contact me at [phone] by phone or if you have questions or concerns regarding this new plan of care! Sincerely, Reymundo Cowart, DPT, OCS, CSCS
--- NOTE | 2023-01-21 10:21 | HP.PTDCNRP_ITS ---
Patient Information Patient Information: ERIK CASE was seen in my office for initial evaluation on 10/07/22. The following Plan of Care was established for this patient: POC Established Initial Frequency: 2x /Week Initial Duration: 4-6 Weeks Anticipated Interventions Patient/Client Instruction: Educate patient on: Condition and Plan of Care For the Purpose of:: To decrease pain, To improve nutrient delivery to tissue, To improve muscle performance and motor function, To increase tolerance to activity/condition/position, To improve ability of physical actions for home/community/work/leisure, To improve gait and locomotor functions and To improve safety Therapeutic Exercise to Include: Strength training, Passive ROM and Active ROM For the Purpose of:: To improve nutrient delivery to tissue, To improve muscle performance and motor function, To improve ability of physical actions for home/community/work/leisure and To improve safety Last Seen Last Seen: This patient was last seen in our office 11/08/22. Pertinent comments regarding their Physical therapy will appear below: Pt seen 7 visits of POC and was 70% better. her POC was to continue 2 more weeks but she cancelled those visits. At this point, it has been over two mon ths and I will discontinue due to nonattendance. At this point I will be discontinuing this patient from physical therapy. I would be happy to see this patient again in the future if found appropriate by the physician. Thank you! Reymundo Cowart, DPT, OCS, CSCS Balance/Gait/Functional tests Balance/Special Test Scores Functional Gait Assessment Score: 26 % Disability: 13.3400 Lower Extremity Functional Score: 38
== END 2022-11-18 19:00 | disposition home or self-care (01) ==
LOC: PT 08:30
PROVIDERS: PCP Internal Medicine; Referring Provider Internal Medicine; Visit Provider Internal Medicine
DX: M51.36 Other intervertebral disc degeneration, lumbar region (principal); M79.605 Pain in left leg
CPT/HCPCS: 97110; 97162; 97530

== ENCOUNTER → 2022-11-26 | Outpatient (CLI) | payer MEDICARE, OTHER, SELFPAY ==
--- NOTE | 2022-11-26 10:55 | MRI_ITS ---
EXAM: MR LUMBAR SPINE WITHOUT INTRAVENOUS CONTRAST CLINICAL INDICATION: Other Intervertebral disc degeneration lumbar region -- Low Back pain symptoms persist and gt;6 weeks Conservative treatment, PAIN AND WEAKNESS IN R LEG TECHNIQUE: Multiplanar and multisequence MR images of the lumbar spine without intravenous contrast. Magnetic field strength 1.5 T. COMPARISON: MR of the lumbar spine 02/04/2022. FINDINGS: VERTEBRAE: Mild levoscoliosis. SPINAL CORD: Unremarkable. Normal position and signal intensity of the conus medullaris. SOFT TISSUES: Unremarkable. No change in the posterior heterogeneous paraspinal soft tissue collection at the L2-L3 level that measures 3.2 x 2 x 4 cm.. DISCS/SPINAL CANAL/NEURAL FORAMINA: L1-L2: Mild disc space narrowing and loss of disc signal. No spinal canal, foraminal, or lateral recess stenosis. L2-L3: Marked disc space narrowing and loss of disc signal. Mild generalized disc bulge. Mild bilateral facet arthropathy. No spinal or foraminal stenosis. L3-L4: Marked disc space narrowing and loss of disc signal. Mild generalized disc bulge. No spinal canal or foraminal stenosis. Mild bilateral facet arthropathy. L4-L5: Marked disc space narrowing and loss of disc signal. Mild generalized bulge. No spinal canal or foraminal stenosis. Moderate bilateral facet arthropathy. L5-S1: Mild disc space narrowing and loss of disc signal. No spinal canal or foraminal stenosis. Moderate bilateral facet arthropathy. MRI/Spine Lumbar (Routine) IMPRESSION: 1. No change in the posterior heterogeneous paraspinal soft tissue collection at the L2-L3 level that measures 3.2 x 2 x 4 cm.. 2. Diffuse degenerative disease unchanged since previous exam. No specific etiology to explain the patient''s symptoms. 3. Mild levoscoliosis. Electronically Signed: Ian Booker MD at 12:58 EDT ,
== END | disposition home or self-care (01) ==
LOC: MRI 10:49
PROVIDERS: PCP Internal Medicine; Referring Provider Internal Medicine; Visit Provider Internal Medicine
DX: M51.36 Other intervertebral disc degeneration, lumbar region (principal)
CPT/HCPCS: 72148

== ENCOUNTER 2022-12-06 11:54 | Outpatient (RCR) | payer MEDICARE, OTHER, SELFPAY ==
[2022-11-15 12:57] LABS: International Normalized Ratio 2.5; Prothrombin Time (Protime)PT. 27.1 SECONDS (11.7-14.9)
[2022-12-06 12:36] LABS: International Normalized Ratio 3.3; Prothrombin Time (Protime)PT. 34.4 SECONDS (11.7-14.9)
== END 2022-12-06 23:59 ==
LOC: BIMLAB 11:54
PROVIDERS: PCP Internal Medicine Gastroenterology; Visit Provider Physician Assistant Medical
DX: Z79.01 Long term (current) use of anticoagulants (principal); I48.0 Paroxysmal atrial fibrillation
CPT/HCPCS: 36415; 85610

== ENCOUNTER → 2022-12-07 | Outpatient (CLI) | payer MEDICARE, OTHER, SELFPAY ==
--- NOTE | 2022-12-07 08:53 | US_ITS ---
STUDY: ABDOMINAL ULTRASOUND - RIGHT UPPER QUADRANT; ELASTOGRAPHY REASON FOR VISIT: Female, 77 years old. CONNOR - TECHNIQUE: Ultrasound evaluation of the right upper quadrant was performed with real-time and static hernandez-scale imaging. Point quantification shear wave elastography was performed (Apieron). TECHNICAL QUALITY: Adequate. COMPARISON: None. FINDINGS: Liver: The liver measures 16 cm. There is increased echogenicity consistent with fatty infiltration. The bile ducts are within normal limits. There is hepatic color flow. The direction of portal flow is hepatopetal. There is no demonstrated mass lesion. Median liver stiffness measured 9.3 kPa. Gallbladder: The patient is status post cholecystectomy. Common Bile Duct (C.B.D.): The common bile duct measures 5.8 mm. Pancreas: There is normal echogenicity of the visualized pancreas. There is no demonstrated pancreatic mass or cyst. Right Kidney: Normal size of the right kidney. The right kidney measures 11 cm x 4.8 cm x 4.3 cm. Normal renal cortex. The right cortex measures 1.3 cm. There is no demonstrated renal mass or cyst. There is no right hydronephrosis. US/Abdomen Limited IMPRESSION: 1. Liver stiffness measures 9.3 kPa compatible with F2-F3 (Mild to moderate liver fibrosis) Metavir score. Electronically Signed: Geovanni Sarkar MD at 8:24 EDT ,
== END | disposition home or self-care (01) ==
PROVIDERS: PCP Internal Medicine; Referring Provider Internal Medicine Gastroenterology; Visit Provider Internal Medicine Gastroenterology
DX: K75.81 Nonalcoholic steatohepatitis (NASH) (principal); K74.60 Unspecified cirrhosis of liver
CPT/HCPCS: 76705; 76981

== ENCOUNTER 2022-12-19 13:08 | Outpatient (RCR) | payer MEDICARE, OTHER, SELFPAY ==
[2022-12-19 15:41] LABS: Prothrombin Time (Protime)PT. 23.2 SECONDS (11.7-14.9)
== END 2023-01-06 23:59 ==
LOC: BIMLAB 13:08
PROVIDERS: PCP Internal Medicine; Referring Provider Physician Assistant Medical; Visit Provider Physician Assistant Medical
DX: Z79.01 Long term (current) use of anticoagulants (principal); I48.0 Paroxysmal atrial fibrillation
CPT/HCPCS: 36415; 85610

== ENCOUNTER → 2023-01-13 | Outpatient (CLI) | payer MEDICARE, OTHER, SELFPAY ==
[2023-01-13] VITALS (9 sets, daily range): BP systolic 100–144; BP diastolic 59–78; PULSE 57–69; RESP 10–18; TEMP 36.3; O2SAT 94–99; BMI 32.5
--- NOTE | 2023-01-13 08:50 | CT_ITS ---
PROCEDURE: CT DIRECTED CORE LIVER BIOPSY INDICATION: Female, 77 years old. CONNOR PHYSICIAN: Dr. Mello Vela CONSENT: Written informed consent was obtained having explained the risks, benefits and alternatives in detail with the patient who accepted the risks and agreed to proceed. Laboratory review and clinical assessment was performed. CONSCIOUS SEDATION PROTOCOL: The Drugs used were: 2 mg Versed, IV., and 50 mcg Fentanyl, IV. The sedation time was: 15 minutes. Conscious sedation was started at 10:44 AM and terminated at 10:59 AM. The conscious sedation protocol was independently monitored. RADIATION DOSAGE (If Supplied By Facility): CTDIvol = ( 27 ) mGy, DLP = ( 842.99 ) mGycm Individualized dose optimization techniques were used for this CT. TECHNIQUE: Using CT image guidance with image documentation, a suitable location in the right lobe of the liver was identified. Using anterior approach, puncture of the liver was uneventful with an 18-gauge core needle system. 3, 18-gauge core samples were obtained, and submitted in formalin to the pathologist for further assessment. Followup CT scan revealed no distinct sequelae. CT/Biopsy/Inj or Needle Placement IMPRESSION: 1. CT directed core needle biopsy of the liver, using CT image guidance with image documentation as described. 2. Conscious Sedation protocol utilized with independent monitoring. Electronically Signed: Geovanni Sarkar MD at 12:24 EDT ,
[2023-01-13 08:53] LABS: Platelet Count 220 K/mm3 (150-450)
[2023-01-13 09:30] LABS: Prothrombin Time (Protime)PT. 13.1 SECONDS (11.7-14.9)
[2023-01-13 09:31] LABS: Partial Thromboplast Time 27.8 Seconds (24.1-36.2)
[2023-01-13] MEDS: Midazolam 2 MG/2 ML Syringe IV (10:44)
[2023-01-13] MEDS: fentaNYL 100 MCG/2 ML Ampul IV (10:45)
[2023-01-13] MEDS: Lidocaine 2% (20 ml mdv) 20 ML Vial INFILT (10:54)
--- NOTE | 2023-01-13 10:55 | LIVB_PTH ---
PATIENT: ERIK CASE LOC: CT U#:[id number] AGE/SX: 77/F ROOM: RE01/13/[address]: Dr. Lukas Killian DO : 1945 BED: DIS: 01/13/2023 SPEC #: [id number] RECD: 01/13/23 11:08 STATUS: KHADAR REQ #: [id number] MARY: 01/13/23 10:[address]: Lukas Killian DEPT: SURGICAL PATHOLOGY RECD BY: Norah Castanon ENTERED: 01/13/23 13:18 SP TYPE: LIVER BX OTHR DR: MD Dr. Geovanni Humphrey MD Tissues: Liver, NOS Procedures: PAS with Diastase (control) Trichrome (control) Special Stain Group II PAS Stain (control) Surgery Specimen Level V Retic (control) Iron Stain (control) HEADER OPERATION: CT-guided liver biopsy PRE-OP DIAGNOSIS: Cirrhosis, CONNOR TISSUE SUBMITTED: Right lobe liver 18-gauge core x3 MICROSCOPIC DIAGNOSIS Right lobe liver, CT-guided core biopsy: Consistent with cirrhosis. See microscopic description. NAFISA:aleksander 01/14/2023 MICROSCOPIC DESCRIPTION Slides are reviewed. The specimen shows liver parenchymal tissue with distortion of normal lobular architecture into multiple nodules divided by fibrous septae. Hepatocytes show reactive changes. Significant nodular inflammation is not seen. Fibrous septae show mild to moderate chronic inflammation predominantly consisting of lymphocytes. Interface inflammation is not seen. Iron stain shows absent iron. Trichrome stain and reticulin stain highlight the fibrous septae in between hepatocyte nodules. PAS stain with and without diastase do not show any abnormal accumulation of protein. All stains are performed with appropriate matched controls. GROSS DESCRIPTION Received is one container labeled with the patient's name and not further designated. The specimen consists of multiple elongated pieces of bwoers soft tissue that in aggregate measure 1.5 x 0.5 x 0.1 cm. The specimen is totally submitted in one cassette. / NAFISA:aleksander 01/13/2023 TC:5 CPT: 25390, 94007 x5
== END | disposition home or self-care (01) ==
LOC: CT 08:41
PROVIDERS: Radiology Diagnostic Radiology; PCP Internal Medicine; Referring Provider Internal Medicine Gastroenterology; Visit Provider Internal Medicine Gastroenterology
DX: K75.81 Nonalcoholic steatohepatitis (NASH) (principal); K74.60 Unspecified cirrhosis of liver
CPT/HCPCS: 47000; 36415; 77012; 85049; 85610; 85730; 88307; 88313; 99156; J7050; A4216

== ENCOUNTER 2023-01-24 10:24 | Outpatient (RCR) | payer MEDICARE, OTHER, SELFPAY ==
[2023-01-24 12:31] LABS: International Normalized Ratio 1.6; Prothrombin Time (Protime)PT. 18.8 SECONDS (11.7-14.9)
== END 2023-02-06 23:59 ==
LOC: BIMLAB 10:24
PROVIDERS: PCP Internal Medicine; Referring Provider Physician Assistant Medical; Visit Provider Physician Assistant Medical
DX: I48.0 Paroxysmal atrial fibrillation (principal); Z79.01 Long term (current) use of anticoagulants
CPT/HCPCS: 36415; 85610

== ENCOUNTER → 2023-02-03 | Outpatient (CLI) | payer MEDICARE, OTHER, SELFPAY ==
--- NOTE | 2023-02-03 10:06 | BI_ITS ---
MAMMOGRAPHY - BILATERAL SCREENING REASON FOR EXAM: Female, 77 years old. Routine annual screening examination. PERTINENT HISTORY: Personal history of breast cancer. Sister with breast cancer. TECHNIQUE: Digital bilateral breast seven (3D mammographic acquisition) in the CC and MLO projections. 2-D mediolateral oblique (MLO) and craniocaudad (CC) views of both breasts were obtained. CAD: Full Field Digital Mammography with Computer Added Detection was performed. COMPARISON: Comparison is made with prior study January 11, 2022 and December 07, 2020. FINDINGS: Breast Composition: There are scattered areas of fibroglandular density. There are no dominant masses or suspicious calcifications. Once again, the patient is status post lumpectomy in the upper medial aspect of the right breast with resultant postoperative architectural distortion and focal dense calcification. No other significant abnormalities are identified. There has been no significant change since the prior study. BI/SCRN MAMM (CAD)W/SEVEN BILAT IMPRESSION: Stable bilateral screening mammogram. Yearly follow-up mammogram recommended. (A) ASSESSMENT CATEGORY: BIRADS Category 2: Benign. A letter regarding these results will be sent to the patient by the facility within 30 days. Approximately 10% of breast cancers are not detected by mammography. A normal mammogram should not delay biopsy of a clinically suspicious abnormality. [id number] Electronically Signed: Geovanni Sarkar MD at 13:09 EDT ,
== END | disposition home or self-care (01) ==
LOC: OPBI 10:05
PROVIDERS: PCP Internal Medicine; Referring Provider Internal Medicine; Visit Provider Internal Medicine
DX: Z12.31 Encounter for screening mammogram for malignant neoplasm of breast (principal)
CPT/HCPCS: 77063; 77067

== ENCOUNTER 2023-02-07 09:51 | Outpatient (RCR) | payer MEDICARE, OTHER, SELFPAY ==
[2023-02-07 12:32] LABS: International Normalized Ratio 1.7; Prothrombin Time (Protime)PT. 19.6 SECONDS (11.7-14.9)
== END 2023-03-08 23:59 ==
LOC: BIMLAB 09:51
PROVIDERS: PCP Internal Medicine; Referring Provider Physician Assistant Medical; Visit Provider Physician Assistant Medical
DX: I48.0 Paroxysmal atrial fibrillation (principal); Z79.01 Long term (current) use of anticoagulants
CPT/HCPCS: 36415; 85610

== ENCOUNTER 2023-04-04 11:06 | Outpatient (RCR) | payer MEDICARE, OTHER, SELFPAY ==
[2023-03-27 12:30] LABS: International Normalized Ratio 1.6; Prothrombin Time (Protime)PT. 19.6 SECONDS (11.7-14.9)
[2023-04-04 12:23] LABS: International Normalized Ratio 1.7
== END 2023-04-08 23:59 ==
LOC: BIMLAB 11:06
PROVIDERS: PCP Internal Medicine; Referring Provider Physician Assistant Medical; Visit Provider Physician Assistant Medical
DX: I48.0 Paroxysmal atrial fibrillation (principal); Z79.01 Long term (current) use of anticoagulants
CPT/HCPCS: 36415; 85610

== ENCOUNTER 2023-04-18 11:03 | Outpatient (RCR) | payer MEDICARE, OTHER, SELFPAY ==
[2023-04-18 12:51] LABS: International Normalized Ratio 2.5; Prothrombin Time (Protime)PT. 27.1 SECONDS (11.7-14.9)
== END 2023-05-08 23:59 ==
LOC: BIMLAB 11:03
PROVIDERS: PCP Internal Medicine; Referring Provider Physician Assistant Medical; Visit Provider Physician Assistant Medical
DX: I48.0 Paroxysmal atrial fibrillation (principal); Z79.01 Long term (current) use of anticoagulants
CPT/HCPCS: 36415; 85610

== ENCOUNTER 2023-05-26 11:02 | Outpatient (RCR) | payer MEDICARE, OTHER, SELFPAY ==
[2023-05-09 12:25] LABS: International Normalized Ratio 2.9; Prothrombin Time (Protime)PT. 30.7 SECONDS (11.7-14.9)
[2023-05-26 11:05] LABS: Mucous, Urine 0 SEEN /hpf (<or=2+)
[2023-05-26 12:04] LABS: Absolute Lymphocyte Count 2.57 X10^3/uL (0.83-4.51); Absolute Neutrophil Count 3.7 X10^3/uL (2.0-7.7); Basophil# 0.06 X10^3/uL; Basophil% 0.9 % (0-1); Color, Urine Yellow (Yellow); Eosinophil# 0.06 X10^3/uL; Eosinophils% 0.9 % (0-5); Glucose, Dipstick Normal (Normal); Hematocrit 46.5 % (37-47); Hemoglobin 14.8 g/dL (12.0-15.0); Ketone-Dipstick 5 mg/dl (Negative); Leukocyte Esterase-Dipstick 25 /ul (Negative); Lymphocyte # 2.57 X10^3/ul (0.83-4.51); Lymphocyte % 36.5 % (19-41); Mean Corp Hgb Conc 31.8 g/dL (32-36); Mean Corpuscular Hgb 28.8 pg (27.0-32.0); Mean Corpuscular Volume 90.6 fL (81-99); Monocyte# 0.61 X10^3/uL; Monocyte% 8.7 % (0-10); NRBC Flagged by Analyzer 0 % (0-5); Neutrophil # 3.72 X10^3/uL (2.7-7.7); Neutrophil % 52.7 % (47-70); Nitrite-Dipstick Negative (Negative); Occult Blood-Urine 25 /ul (Negative); POSITIVE MORPHOLOGY YES; Platelet Count 230 K/mm3 (150-450); Protein-Dipstick 30 mg/dl (Negative); RBC Distribution Width CV 13.5 % (11.6-14.6); RBC Distribution Width SD 45.4 fl (35.1-43.9); Red Blood Count 5.13 M/mm3 (4.2-5.4); Urine Bilirubin Dipstick Negative (Negative); Urine Clarity Sl. Cloudy (Clear); Urine Urobilinogen 1 mg/dl (Normal)
[2023-05-26 12:05] LABS: Differential Indicated SCAN CRITERIA MET
[2023-05-26 12:11] LABS: Bacteria 2+ /hpf (None Seen); Red Blood Cells-Urine 0-5 SEEN /hpf (0-5); Squamous Epithelial Cells - UA 10-25 SEEN /hpf (5-10); White Blood Cells 0-5 SEEN /hpf (0-5)
[2023-05-26 12:12] LABS: International Normalized Ratio 2.3; Prothrombin Time (Protime)PT. 25.3 SECONDS (11.7-14.9)
[2023-05-26 12:24] LABS: AST(SGOT) 30 U/L (15-37); Alanine Aminotransfer ALT/SGPT 26 U/L (13-56); Albumin, Serum 3.5 g/dL (3.2-5.0); Alkaline Phosphatase 70 U/L (45-117); Anion Gap 6 (5-15); BUN 18 mg/dL (7-18); BUN/Creat Ratio 24.1 RATIO (10-20); Calcium,Total 8.7 mg/dL (8.5-10.1); Chloride 107 mmol/L (98-107); Creatinine, Serum 0.75 mg/dL (0.55-1.02); EST Glomerular Filtration Rate 80 mL/min (>60); Est Glom Filt Rate - Afr Amer 97 mL/min (>60); Globulin 3.5 g/dL (2.2-4.2); Glucose 95 mg/dL (74-106); Potassium 4.5 mmol/L (3.5-5.1); Sodium Level 142 mmol/L (136-145); Thyroid Stim Hormone (TSH) 0.96 uIU/mL (0.358-3.74)
[2023-05-26 12:37] LABS: Reactive Lymphocyte 1+
[2023-05-26 14:16] LABS: Hemoglobin A1c 5.3 % (3.8-5.6)
== END 2023-06-08 23:59 ==
LOC: BIMLAB 11:02
PROVIDERS: Nurse Practitioner Family; PCP Internal Medicine; Referring Provider Physician Assistant Medical; Visit Provider Physician Assistant Medical
DX: Z79.01 Long term (current) use of anticoagulants; I48.91 Unspecified atrial fibrillation; R42 Dizziness and giddiness; F41.9 Anxiety disorder, unspecified; I73.9 Peripheral vascular disease, unspecified; K75.81 Nonalcoholic steatohepatitis (NASH); K31.84 Gastroparesis; R53.83 Other fatigue; D64.9 Anemia, unspecified
CPT/HCPCS: 36415; 80053; 81001; 83036; 84443; 85025; 85610

== ENCOUNTER 2023-06-27 10:30 | Outpatient (RCR) | payer MEDICARE, OTHER, SELFPAY ==
[2023-06-27 12:42] LABS: Prothrombin Time (Protime)PT. 23.1 SECONDS (11.7-14.9)
== END 2023-07-09 23:59 ==
LOC: BIMLAB 10:30
PROVIDERS: PCP Internal Medicine; Referring Provider Physician Assistant Medical; Visit Provider Physician Assistant Medical
DX: Z79.01 Long term (current) use of anticoagulants
CPT/HCPCS: 36415; 85610

== ENCOUNTER 2023-07-25 10:43 | Outpatient (RCR) | payer MEDICARE, OTHER, SELFPAY ==
[2023-07-25 13:00] LABS: International Normalized Ratio 1.8; Prothrombin Time (Protime)PT. 20.7 SECONDS (11.7-14.9)
== END 2023-08-07 23:59 ==
LOC: BIMLAB 10:43
PROVIDERS: PCP Internal Medicine; Referring Provider Physician Assistant Medical; Visit Provider Physician Assistant Medical
DX: Z79.01 Long term (current) use of anticoagulants (principal)
CPT/HCPCS: 36415; 85610

== ENCOUNTER 2023-09-03 10:17 | Outpatient (RCR) | payer MEDICARE, OTHER, SELFPAY ==
[2023-09-03 12:27] LABS: International Normalized Ratio 2.4; Prothrombin Time (Protime)PT. 25.7 SECONDS (11.7-14.9)
== END 2023-09-07 23:59 ==
LOC: BIMLAB 10:17
PROVIDERS: PCP Internal Medicine; Referring Provider Physician Assistant Medical; Visit Provider Physician Assistant Medical
DX: Z79.01 Long term (current) use of anticoagulants (principal)
CPT/HCPCS: 36415; 85610

== ENCOUNTER 2023-10-17 15:26 | Outpatient (RCR) | payer MEDICARE, OTHER, SELFPAY ==
[2023-10-17 16:40] LABS: Prothrombin Time (Protime)PT. 31.1 SECONDS (11.7-14.9)
[2023-10-17 16:45] LABS: AST(SGOT) 28 U/L (15-37); Alanine Aminotransfer ALT/SGPT 27 U/L (13-56); Albumin, Serum 3.3 g/dL (3.2-5.0); Alkaline Phosphatase 89 U/L (45-117); Anion Gap 4 (5-15); BUN 13 mg/dL (7-18); BUN/Creat Ratio 19.1 RATIO (10-20); CRP < 2.90 mg/L (0.0-3.0); Calcium,Total 8.6 mg/dL (8.5-10.1); Chloride 108 mmol/L (98-107); Cholesterol 164 mg/dL (200); Creatinine, Serum 0.68 mg/dL (0.55-1.02); EST Glomerular Filtration Rate 89 mL/min (>60); Est Glom Filt Rate - Afr Amer 108 mL/min (>60); Globulin 3.4 g/dL (2.2-4.2); Glucose 90 mg/dL (74-106); High Density Lipoprotein 44 mg/dL; Potassium 4.2 mmol/L (3.5-5.1); Protein, Total 6.7 g/dL (6.4-8.2); Sodium Level 140 mmol/L (136-145); Triglycerides 212 mg/dL; Very Low Density Lipoprotein 42 mg/dL (5-40)
[2023-10-19 08:07] LABS: AFP, Tumor Marker 2.9 ng/mL (0.0-9.2)
[2023-10-20 15:07] LABS: ANTINUCLEAR ANTIBODIES DIRECT Negative (Negative)
== END 2023-11-07 23:59 ==
LOC: BIMLAB 15:26
PROVIDERS: Internal Medicine; PCP Internal Medicine; Referring Provider Physician Assistant Medical; Visit Provider Physician Assistant Medical
DX: Z79.01 Long term (current) use of anticoagulants (principal); I47.10 Supraventricular tachycardia, unspecified; K75.81 Nonalcoholic steatohepatitis (NASH); K74.60 Unspecified cirrhosis of liver; K31.84 Gastroparesis; E78.2 Mixed hyperlipidemia; I25.10 Atherosclerotic heart disease of native coronary artery without angina pectoris
CPT/HCPCS: 36415; 80053; 80061; 82105; 82140; 85610; 86038; 86140; 86225; 86235

== ENCOUNTER 2023-11-12 10:03 | Outpatient (RCR) | payer MEDICARE, OTHER, SELFPAY ==
[2023-11-12 11:05] LABS: International Normalized Ratio 3.2; Prothrombin Time (Protime)PT. 32.6 SECONDS (11.7-14.9)
== END 2023-11-12 18:00 | disposition home or self-care (01) ==
LOC: LAB 10:03
PROVIDERS: PCP Internal Medicine; Referring Provider Physician Assistant Medical; Visit Provider Physician Assistant Medical
DX: Z79.01 Long term (current) use of anticoagulants (principal)
CPT/HCPCS: 36415; 85610

== ENCOUNTER → 2023-11-12 | Outpatient (CLI) | payer MEDICARE, OTHER, SELFPAY ==
--- NOTE | 2023-11-12 10:21 | MRI_ITS ---
EXAM: MR ABDOMEN WITHOUT AND WITH INTRAVENOUS CONTRAST CLINICAL INDICATION: Cirrhosis. CONNOR -- R/O HCC, HCC protocol TECHNIQUE: Multiplanar and multisequence MR images of the abdomen without and with intravenous contrast. CONTRAST: 18ML IV CLARISCAN COMPARISON: No relevant prior studies available. FINDINGS: LOWER THORAX: Small hiatal hernia. No pleural effusion. LIVER: Normal size liver without focal mass lesion. Nodular contour of the liver with mild prominence of the left and caudate lobes consistent with underlying cirrhosis. GALLBLADDER AND BILE DUCTS: Susceptibility artifacts at the ulises hepatis related to cholecystectomy clips. No intra- or extrahepatic biliary ductal dilation. PANCREAS: Normal. No focal cystic or solid mass. SPLEEN: Normal. Normal size without focal cystic or solid mass. ADRENALS: Normal. No nodules. KIDNEYS AND URETERS: Normal. Normal renal size and position. No hydronephrosis. INTRAPERITONEAL SPACE: Normal. No ascites or other fluid collection. No free air. VASCULATURE: Portal vein is patent. Abdominal aorta is non-dilated. LYMPH NODES: No enlarged lymph nodes. MRI/MRI Abd WITH and W/O Contrast IMPRESSION: Hepatic cirrhosis. No evidence of a liver mass. Electronically Signed: Juan Walton MD at 16:28 EDT ,
== END | disposition home or self-care (01) ==
LOC: MRI 10:01
PROVIDERS: PCP Internal Medicine; Referring Provider Internal Medicine; Visit Provider Internal Medicine
DX: K75.81 Nonalcoholic steatohepatitis (NASH) (principal); K74.60 Unspecified cirrhosis of liver; K31.84 Gastroparesis; E66.9 Obesity, unspecified
CPT/HCPCS: 74183; A9575; A4216

== ENCOUNTER → 2023-11-28 | Outpatient (CLI) | payer MEDICARE, OTHER, SELFPAY ==
[2023-11-28 12:30] LABS: International Normalized Ratio 3.8
== END | disposition home or self-care (01) ==
LOC: BIMLAB 10:58
PROVIDERS: Physician Assistant Medical; PCP Internal Medicine; Referring Provider Internal Medicine; Visit Provider Internal Medicine
DX: Z79.01 Long term (current) use of anticoagulants (principal)
CPT/HCPCS: 36415; 85610

== ENCOUNTER 2024-01-05 09:53 | Outpatient (RCR) | payer MEDICARE, OTHER, SELFPAY ==
[2023-12-08 10:42] LABS: Prothrombin Time (Protime)PT. 41.7 SECONDS (11.7-14.9)
[2023-12-08 10:43] LABS: International Normalized Ratio 4.4
[2023-12-15 15:09] LABS: International Normalized Ratio 2.9; Prothrombin Time (Protime)PT. 29.7 SECONDS (11.7-14.9)
[2023-12-30 11:55] LABS: Absolute Lymphocyte Count 1.85 X10^3/uL (0.83-4.51); Absolute Neutrophil Count 3.1 X10^3/uL (2.0-7.7); Basophil# 0.03 X10^3/uL; Basophil% 0.5 % (0-1); Eosinophil# 0.07 X10^3/uL; Eosinophils% 1.2 % (0-5); Hematocrit 45.9 % (37-47); Hemoglobin 14.8 g/dL (12.0-15.0); Lymphocyte # 1.85 X10^3/ul (0.83-4.51); Lymphocyte % 32.7 % (19-41); Mean Corp Hgb Conc 32.2 g/dL (32-36); Mean Corpuscular Hgb 29.2 pg (27.0-32.0); Mean Corpuscular Volume 90.5 fL (81-99); Mean Platelet Vol. 10.6 fl (6.2-12.0); Monocyte# 0.58 X10^3/uL; Monocyte% 10.2 % (0-10); NRBC Flagged by Analyzer 0 % (0-5); Neutrophil # 3.12 X10^3/uL (2.7-7.7); Neutrophil % 55.2 % (47-70); Platelet Count 225 K/mm3 (150-450); RBC Distribution Width CV 13.5 % (11.6-14.6); RBC Distribution Width SD 44.3 fl (35.1-43.9); Red Blood Count 5.07 M/mm3 (4.2-5.4); White Blood Count 5.7 K/mm3 (4.4-11.0)
[2023-12-30 12:06] LABS: International Normalized Ratio 1.6; Prothrombin Time (Protime)PT. 18.7 SECONDS (11.7-14.9)
[2023-12-30 12:55] LABS: Anion Gap 6 (5-15); BUN 10 mg/dL (7-18); BUN/Creat Ratio 12.5 RATIO (10-20); Chloride 106 mmol/L (98-107); EST Glomerular Filtration Rate 74 mL/min (>60); Est Glom Filt Rate - Afr Amer 89 mL/min (>60); Glucose 80 mg/dL (74-106); Potassium 4.5 mmol/L (3.5-5.1); Sodium Level 139 mmol/L (136-145)
[2024-01-05 12:29] LABS: International Normalized Ratio 2.3; Prothrombin Time (Protime)PT. 24.9 SECONDS (11.7-14.9)
== END 2024-01-07 23:59 ==
LOC: BIMLAB 09:53
PROVIDERS: Physician Assistant Medical; PCP Internal Medicine; Referring Provider Nurse Practitioner Family; Visit Provider Nurse Practitioner Family
DX: Z79.01 Long term (current) use of anticoagulants (principal); R06.02 Shortness of breath; R42 Dizziness and giddiness; I95.9 Hypotension, unspecified
CPT/HCPCS: 36415; 80048; 83880; 85025; 85610

== ENCOUNTER → 2024-01-23 | Outpatient (CLI) | payer MEDICARE, OTHER, SELFPAY ==
[2024-01-23 09:33] LABS: Absolute Lymphocyte Count 1.89 X10^3/uL (0.83-4.51); Absolute Neutrophil Count 3.5 X10^3/uL (2.0-7.7); Basophil# 0.04 X10^3/uL; Basophil% 0.7 % (0-1); Eosinophil# 0.05 X10^3/uL; Eosinophils% 0.8 % (0-5); Hematocrit 47.7 % (37-47); Hemoglobin 15.5 g/dL (12.0-15.0); Lymphocyte # 1.89 X10^3/ul (0.83-4.51); Lymphocyte % 30.9 % (19-41); Mean Corp Hgb Conc 32.5 g/dL (32-36); Mean Corpuscular Volume 89.2 fL (81-99); Mean Platelet Vol. 10.3 fl (6.2-12.0); Monocyte# 0.64 X10^3/uL; Monocyte% 10.5 % (0-10); NRBC Flagged by Analyzer 0 % (0-5); Neutrophil # 3.49 X10^3/uL (2.7-7.7); Neutrophil % 56.9 % (47-70); Platelet Count 226 K/mm3 (150-450); RBC Distribution Width CV 13.3 % (11.6-14.6); RBC Distribution Width SD 43.2 fl (35.1-43.9); Red Blood Count 5.35 M/mm3 (4.2-5.4); White Blood Count 6.1 K/mm3 (4.4-11.0)
[2024-01-23 09:47] LABS: International Normalized Ratio 2.8; Prothrombin Time (Protime)PT. 28.9 SECONDS (11.7-14.9)
[2024-01-23 10:09] LABS: Hemoglobin A1c 5.1 % (3.8-5.6)
[2024-01-23 10:59] LABS: AST(SGOT) 30 U/L (15-37); Alanine Aminotransfer ALT/SGPT 25 U/L (13-56); Albumin, Serum 3.4 g/dL (3.2-5.0); Alkaline Phosphatase 62 U/L (45-117); Anion Gap 5 (5-15); BUN 17 mg/dL (7-18); BUN/Creat Ratio 18.5 RATIO (10-20); CRP < 2.90 mg/L (0.0-3.0); Chloride 107 mmol/L (98-107); Cholesterol 137 mg/dL (200); Creatinine, Serum 0.92 mg/dL (0.55-1.02); EST Glomerular Filtration Rate 63 mL/min (>60); Est Glom Filt Rate - Afr Amer 76 mL/min (>60); Globulin 3.5 g/dL (2.2-4.2); Glucose 95 mg/dL (74-106); High Density Lipoprotein 53 mg/dL; Potassium 4.2 mmol/L (3.5-5.1); Protein, Total 6.9 g/dL (6.4-8.2); Sodium Level 140 mmol/L (136-145); Triglycerides 132 mg/dL; Very Low Density Lipoprotein 26 mg/dL (5-40)
[2024-01-24 08:16] LABS: AFP, Tumor Marker 3.2 ng/mL (0.0-9.2)
== END | disposition home or self-care (01) ==
LOC: LAB 08:55
PROVIDERS: PCP Internal Medicine; Referring Provider Internal Medicine; Visit Provider Internal Medicine
DX: K75.81 Nonalcoholic steatohepatitis (NASH) (principal); K74.60 Unspecified cirrhosis of liver; K31.84 Gastroparesis; E66.9 Obesity, unspecified
CPT/HCPCS: 36415; 80053; 80061; 82105; 83036; 85025; 85610; 86140

== ENCOUNTER → 2024-01-29 | Outpatient (CLI) | payer MEDICARE, OTHER, SELFPAY ==
--- NOTE | 2024-01-29 14:22 | CT_ITS ---
STUDY: LOW DOSE CT LUNG CANCER SCREENING REASON FOR EXAM: Female, 78 years old. Tobacco dependence in remission. Patient smokes half a pack per day for 48 years. Prior right mastectomy. RADIATION DOSAGE (If Supplied By Facility): CTDIvol = ( 3.02 ) mGy, DLP = ( 97.79 ) mGycm TECHNIQUE: No contrast was administered. Low dose technique was utilized (average mAS-38 and kVp 120). 1.25 mm axial source images with a slice interval of 1.25-mm were reconstructed in lung windows. 2.5 mm axial source images with a slice interval of 2.5-mm were reconstructed in lung windows. 5.0 mm axial source images with a slice interval of 5.0-mm were reconstructed in soft tissue windows. COMPARISON: Comparison is made with prior study dated June 19, 2022. NODULES: Once again, there is a 3 mm calcified granuloma in the peripheral lateral aspect of the right upper lobe as seen on axial image #100. Emphysema: Mild scarring at the lung apices. Mild degree of emphysematous changes. Endobronchial lesion: None Aorta: Atherosclerotic plaque formation of the aortic arch. CORONARY ARTERIES: Coronary artery calcification is seen. Heart: Unremarkable Pulmonary artery: Unremarkable Mediastinal nodes: There are small benign-appearing mediastinal lymph nodes. Other chest and abdominal findings: CT/Low Dose CT Lung Screening IMPRESSION: Lung-RADS category 2 - Continue annual screening with LDCT in 12 months. IMPORTANT NOTES FOR USE: ACR Lung-RADS Version 1.1 Assessment Categories Release Date: 2018 Category: Coded 0-4 bases on nodule(s) with highest degree of suspicion. Negative screen is defined as categories 1 and 2; a positive screen is defined as categories 3 and 4. Category 3 and 4A nodules that are unchanged on interval CT should be coded as category 2, and individuals returned to screening in 12 months. Category 4X: Category 3 or 4 nodules with additional imaging findings that increase the suspicion of lung cancer, such as spiculation, GGN that doubles in size in 1 year, enlarged lymph notes, etc. Category Modifiers: S (significant finding unrelated to lung cancer) Electronically Signed: Geovanni Sarkar MD at 15:06 EDT ,
== END | disposition home or self-care (01) ==
LOC: CT 14:19
PROVIDERS: PCP Internal Medicine; Referring Provider Internal Medicine; Visit Provider Internal Medicine
DX: Z12.2 Encounter for screening for malignant neoplasm of respiratory organs (principal); F17.211 Nicotine dependence, cigarettes, in remission
CPT/HCPCS: 71271

== ENCOUNTER → 2024-02-04 | Outpatient (CLI) | payer MEDICARE, OTHER, SELFPAY ==
--- NOTE | 2024-02-04 12:47 | BI_ITS ---
MAMMOGRAPHY - BILATERAL SCREENING REASON FOR EXAM: Female, 78 years old. Routine annual screening examination. PERTINENT HISTORY: Personal history of breast cancer. Prior right lumpectomy. Sister with breast cancer. TECHNIQUE: Digital bilateral breast seven (3D mammographic acquisition) in the CC and MLO projections. 2-D mediolateral oblique (MLO) and craniocaudad (CC) views of both breasts were obtained. CAD: Full Field Digital Mammography with Computer Added Detection was performed. COMPARISON: Comparison is made with prior study February 03, 2023 and January 11, 2022. FINDINGS: Breast Composition: There are scattered areas of fibroglandular density. There are no dominant masses or suspicious calcifications. Once again, the patient status post lumpectomy in the upper medial aspect of the right breast with resultant postoperative scarring and dystrophic calcification. Stable small bilateral axillary lymph nodes. No other significant abnormalities are identified. There has been no significant change since the prior study. BI/SCRN MAMM (CAD)W/SEVEN BILAT IMPRESSION: Stable bilateral screening mammogram. Yearly follow-up mammogram recommended. (A) ASSESSMENT CATEGORY: BIRADS Category 2: Benign. A letter regarding these results will be sent to the patient by the facility within 30 days. Approximately 10% of breast cancers are not detected by mammography. A normal mammogram should not delay biopsy of a clinically suspicious abnormality. [id number] Electronically Signed: Geovanni Sarkar MD at 14:01 EDT ,
--- NOTE | 2024-02-04 12:47 | BD_ITS ---
STUDY: DUAL ENERGY X-RAY ABSORPTIOMETRY / DXA REASON FOR EXAM: Female, 78 years old. Z78.0 TECHNIQUE: Bone Mineral Density (BMD) measurements of lumbar spine and bilateral hips were obtained. COMPARISON: Comparison is made with prior study dated December 02, 2019. FINDINGS: Lumbar Spine (L1-L4): g/cm2 (0.982) / T-score (-0.6) / Z-score (2.0) Findings are suggestive of normal bone density with a low fracture risk. Left Femur Total: g/cm2 (0.915) / T-score (-0.2) / Z-score (1.7) Left Femoral Neck: g/cm2 (0.598) / T-score (-2.3) / Z-score (0.0) Right Femur Total: g/cm2 (0.880) / T-score (-0.5) / Z-score (1.4) Right Femoral Neck: g/cm2 (0.691) / T-score (-1.4) / Z-score (0.8) The T-Scores on the most recent prior examination were: Lumbar Spine (L1-L4): There has been improvement of bone density since the previous examination. Left Femur Total: which represents an improvement of 1.4%. Right Femur Total: which represents an improvement of 1%. BD/Dexa Bone Density Study IMPRESSION: The patient is considered osteopenic as outlined below according to World Blair Organization (WHO) criteria with a high fracture risk. There has been improvement of bone density since the previous examination. Reference Information: The T-score is the number of standard deviations above or below the standard which is normal for young adults at their peak bone mineral density. The World Health Organization (WHO) interprets the T-scores as follows: Above -1 Normal bone density Between -1 and -2.5 Osteopenia Equal to / or below -2.5 Osteoporosis As a practical clinical guideline, osteopenia may be graded as follows: Mild -1 through -1.5 Moderate -1.6 through -2.0 Severe -2.1 through -2.4 The Z-score is the number of standard deviations above or below age-matched controls. A Z-score of less than -1.5 would be considered abnormal. References: 1. NIH Osteoporosis and Related Bone Diseases www osteo.org 2. International Society for Clinical Densitometry www iscd.org 3. National Osteoporosis Foundation www nof.org Electronically Signed: Geovanni Sarkar MD at 11:13 EDT ,
== END | disposition home or self-care (01) ==
LOC: OPBD 12:45
PROVIDERS: PCP Internal Medicine; Referring Provider Internal Medicine; Visit Provider Internal Medicine
DX: Z12.31 Encounter for screening mammogram for malignant neoplasm of breast (principal); Z78.0 Asymptomatic menopausal state
CPT/HCPCS: 77063; 77067; 77080

== ENCOUNTER 2024-02-13 10:37 | Outpatient (RCR) | payer MEDICARE, OTHER, SELFPAY ==
[2024-02-13 12:00] LABS: International Normalized Ratio 2.2; Prothrombin Time (Protime)PT. 24.3 SECONDS (11.7-14.9)
== END 2024-03-08 23:59 ==
LOC: BIMLAB 10:37
PROVIDERS: PCP Internal Medicine; Referring Provider Nurse Practitioner Family; Visit Provider Nurse Practitioner Family
DX: Z79.01 Long term (current) use of anticoagulants (principal)
CPT/HCPCS: 36415; 85610

== ENCOUNTER 2024-03-26 14:33 | Outpatient (RCR) | payer MEDICARE, OTHER, SELFPAY ==
[2024-03-19 16:32] LABS: International Normalized Ratio 3.5; Prothrombin Time (Protime)PT. 34.7 SECONDS (11.7-14.9)
[2024-03-26 15:29] LABS: International Normalized Ratio 2.4; Prothrombin Time (Protime)PT. 25.8 SECONDS (11.7-14.9)
== END 2024-04-08 23:59 ==
LOC: BIMLAB 14:33
PROVIDERS: PCP Internal Medicine; Referring Provider Nurse Practitioner Family; Visit Provider Nurse Practitioner Family
DX: Z79.01 Long term (current) use of anticoagulants (principal)
CPT/HCPCS: 36415; 85610

== ENCOUNTER 2024-04-30 13:25 | Outpatient (RCR) | payer MEDICARE, OTHER, SELFPAY ==
[2024-04-09 12:30] LABS: International Normalized Ratio 1.9; Prothrombin Time (Protime)PT. 21.9 SECONDS (11.7-14.9)
[2024-04-30 15:44] LABS: International Normalized Ratio 2.7; Prothrombin Time (Protime)PT. 28.1 SECONDS (11.7-14.9)
== END 2024-05-08 23:59 ==
LOC: BIMLAB 13:25
PROVIDERS: PCP Internal Medicine; Referring Provider Nurse Practitioner Family; Visit Provider Nurse Practitioner Family
DX: Z79.01 Long term (current) use of anticoagulants (principal)
CPT/HCPCS: 36415; 85610

== ENCOUNTER 2024-05-28 09:09 | Outpatient (RCR) | payer MEDICARE, OTHER, SELFPAY ==
[2024-05-28 12:24] LABS: International Normalized Ratio 2.2
== END 2024-06-08 23:59 ==
LOC: BIMLAB 09:09
PROVIDERS: PCP Internal Medicine; Referring Provider Nurse Practitioner Family; Visit Provider Nurse Practitioner Family
DX: Z79.01 Long term (current) use of anticoagulants (principal)
CPT/HCPCS: 36415; 85610

== ENCOUNTER → 2024-07-01 | Outpatient (CLI) | payer MEDICARE, OTHER, SELFPAY ==
--- NOTE | 2024-07-01 12:46 | ECHOD_ITS ---
Reason For Study: ARRHYTHMIA Procedure This was a 2D Doppler, Color Flow transthoracic echocardiogram. Exam performed in department. Left Ventricle Normal LV size. Left ventricular systolic function is normal. The left ventricular ejection fraction is 60 %. No regional wall motion abnormalities noted. Right Ventricle Normal RV size. Normal systolic function. Atria Normal left atrium. Normal right atrium. Tricuspid Valve Normal tricuspid valve. Mild tricuspid valve insufficiency. Pulmonary artery systolic pressure is 28 mmHg. Aortic Valve Trisinus/trileaflet aortic valve. Mild focal aortic valve calcification. Pulmonic Valve Normal pulmonic valve. Great Vessels Normal aortic root. The pulmonary artery is normal size. Normal inferior vena cava. Pericardium/Pleural No pericardial effusion. MMode/2D Measurements & Calculations LVIDd: 4.4 cm IVSd: 0.72 cm LVOT diam: 2.0 cm LVIDs: 2.6 cm LVPWd: 0.84 cm LVOT area: 3.0 cm2 FS: 40.3 % Ao root diam: 2.7 cm LAV(MOD-bp): 31.8 ml LVAd ap4: 17.8 cm2 LAV(MOD-bp) Indexed: 17.9 ml/m2 LVLd ap4: 6.9 cm LAV(MOD-sp2): 34.6 ml EDV(MOD-sp4): 39.7 ml LAV(MOD-sp4): 24.8 ml EDV(sp4-el): 38.7 ml LVAs ap4: 11.0 cm2 LVLs ap4: 6.1 cm ESV(MOD-sp4): 19.3 ml ESV(sp4-el): 16.9 ml EF(MOD-sp4): 51.3 % EF(sp4-el): 56.3 % SV(MOD-sp4): 20.4 ml SV(sp4-el): 21.8 ml LA A4 area: 11.3 cm2 SI(MOD-sp4): 11.5 ml/m2 LA dimension(2D): 3.5 cm RA A4 area: 13.0 cm2 Time Measurements MV dec time: 0.16 sec Doppler Measurements & Calculations MV E max jose carlos: 67.8 cm/sec Lat Peak E' Jose Carlos: 6.6 cm/sec Med Peak E' Jose Carlos: 7.9 cm/sec MV A max jose carlos: 64.3 cm/sec E/E' lat: 10.3 E/E' med: 8.5 MV E/A: 1.1 MV V2 max: 72.8 cm/sec Ao V2 max: 84.0 cm/sec MV max P.1 mmHg MV dec slope: 441.8 cm/sec2 Ao max P.8 mmHg MV V2 mean: 47.2 cm/sec Ao V2 mean: 60.6 cm/sec MV mean P.99 mmHg Ao mean P.7 mmHg MV V2 VTI: 22.8 cm Ao V2 VTI: 19.4 cm AV (velocity ratio): 0.90 MVA(VTI): 2.3 cm2 MAO(I,D): 2.7 cm2 MAO(V,D): 2.8 cm2 LV V1 max: 78.4 cm/sec SV(LVOT): 52.5 ml PA V2 max: 80.3 cm/sec LV V1 max P.5 mmHg PA V2 mean: 60.5 cm/sec LV V1 mean P.4 mmHg LV V1 mean: 55.1 cm/sec LV V1 VTI: 17.4 cm TR max jose carlos: 245.0 cm/sec TR max P.0 mmHg ECHO/Echo Complete Interpretation Summary Normal LV size. Left ventricular systolic function is normal. The left ventricular ejection fraction is 60 %. Pulmonary artery systolic pressure is 28 mmHg. Ordering Physician: Sandie Ramon Referring Physician: Sandie Ramon Performed By: Chantell Roberts RCS
== END | disposition home or self-care (01) ==
LOC: CVS 12:45
PROVIDERS: PCP Internal Medicine; Referring Provider Physician Assistant Medical; Visit Provider Physician Assistant Medical
DX: R00.2 Palpitations (principal)
CPT/HCPCS: 93306

== ENCOUNTER → 2024-07-20 | Outpatient (CLI) | payer MEDICARE, OTHER, SELFPAY ==
--- NOTE | 2024-07-20 07:43 | US_ITS ---
PROCEDURE: ABD LIMITED W/ ELASTOGRAPHY REASON FOR EXAM: CONNOR COMPARISON: Comparison is made with prior study dated December 07, 2022. TECHNIQUE: Right upper quadrant abdominal ultrasound. Nirmala ElastQ Imaging shear wave elastography for non-invasive assessment of liver tissue stiffness. Nirmala EPIQ Elite. FINDINGS: LIVER: Size: Unremarkable Length: 13.9 cm Echotexture: Coarsened Contour: Normal Lesions: None identified Elastography: EQI Med: 8.1 kPa EQI Med Jose Carlos: 1.63 m/s IQR/Med: 20 %* GALLBLADDER: Surgically absent. COMMON BILE DUCT: Normal it measures 5 mm. PANCREAS: Visualized portions are unremarkable. The distal body and tail are obscured by bowel gas. Visualized portions of the right kidney are unremarkable. No right upper quadrant ascites. US/ABD Limited w/ Elastography IMPRESSION: MODERATE TO SEVERE HEPATIC FIBROSIS Reference Values: SRU <1.37 m/s (5.7kPa): No to mild fibrosis 1.37 m/s - 2.2 m/s: Moderate to severe fibrosis >2.2 m/s (15kPa): Significant fibrosis / cirrhosis METAVIR Score F2 or higher: 1.34 m/s (5.7kPa) F3 or higher: 1.55 m/s (7.3kPa) F4: 1.80 m/s (10kPa) * If the IQR/Med is >30%, the variance in the measurements is a large and the a ccuracy of the measurement may be in question. Reading Location: [id number]
== END | disposition home or self-care (01) ==
LOC: US 07:43
PROVIDERS: PCP Internal Medicine; Referring Provider Internal Medicine; Visit Provider Internal Medicine
DX: K75.81 Nonalcoholic steatohepatitis (NASH) (principal); K74.60 Unspecified cirrhosis of liver
CPT/HCPCS: 76705; 76981

== ENCOUNTER 2024-07-23 14:07 | Outpatient (RCR) | payer MEDICARE, OTHER, SELFPAY ==
[2024-07-23 15:56] LABS: International Normalized Ratio 2.3; Prothrombin Time (Protime)PT. 25.5 SECONDS (11.7-14.9)
== END 2024-08-06 23:59 ==
LOC: BIMLAB 14:07
PROVIDERS: PCP Internal Medicine; Referring Provider Nurse Practitioner Family; Visit Provider Nurse Practitioner Family
DX: Z79.01 Long term (current) use of anticoagulants (principal); I48.0 Paroxysmal atrial fibrillation
CPT/HCPCS: 36415; 85610

== ENCOUNTER 2024-08-13 10:22 | Outpatient (RCR) | payer MEDICARE, OTHER, SELFPAY ==
[2024-08-13 12:30] LABS: International Normalized Ratio 1.8; Prothrombin Time (Protime)PT. 21.2 SECONDS (11.7-14.9)
== END 2024-09-06 23:59 ==
LOC: BIMLAB 10:22
PROVIDERS: Physician Assistant Medical; PCP Internal Medicine; Referring Provider Nurse Practitioner Family; Visit Provider Nurse Practitioner Family
DX: Z79.01 Long term (current) use of anticoagulants (principal); I48.0 Paroxysmal atrial fibrillation
CPT/HCPCS: 36415; 85610

== ENCOUNTER → 2024-08-19 | Outpatient (CLI) | payer MEDICARE, OTHER, SELFPAY ==
[2024-08-19 12:38] LABS: Absolute Lymphocyte Count 1.62 X10^3/uL (0.83-4.51); Absolute Neutrophil Count 3.7 X10^3/uL (2.0-7.7); Basophil# 0.03 X10^3/uL; Basophil% 0.5 % (0-1); Eosinophil# 0.04 X10^3/uL; Eosinophils% 0.7 % (0-5); Hematocrit 45.7 % (37-47); Lymphocyte # 1.62 X10^3/ul (0.83-4.51); Lymphocyte % 27.2 % (19-41); Mean Corp Hgb Conc 32.8 g/dL (32-36); Mean Corpuscular Hgb 29.6 pg (27.0-32.0); Mean Corpuscular Volume 90.3 fL (81-99); Mean Platelet Vol. 10.6 fl (6.2-12.0); Monocyte# 0.58 X10^3/uL; Monocyte% 9.7 % (0-10); NRBC Flagged by Analyzer 0 % (0-5); Neutrophil # 3.68 X10^3/uL (2.7-7.7); Neutrophil % 61.7 % (47-70); Platelet Count 223 K/mm3 (150-450); RBC Distribution Width CV 13.4 % (11.6-14.6); RBC Distribution Width SD 44.5 fl (35.1-43.9); Red Blood Count 5.06 M/mm3 (4.2-5.4)
[2024-08-19 12:48] LABS: International Normalized Ratio 1.9; Prothrombin Time (Protime)PT. 22.4 SECONDS (11.7-14.9)
[2024-08-19 13:24] LABS: Ammonia 18.1 umol/L (11-51)
[2024-08-19 13:29] LABS: ALB/GLOB Ratio 1.5 RATIO (0.9-2.4); AST(SGOT) 30 U/L (<=31); Alanine Aminotransfer ALT/SGPT 16 U/L (<=34); Alkaline Phosphatase 64 U/L (35-104); Anion Gap 10 (5-15); BUN 13 mg/dL (4-19); BUN/Creat Ratio 16.8 RATIO (10-20); Calcium,Total 9.2 mg/dL (7.6-11.0); Carbon Dioxide 27.3 mmol/L (21.0-32.0); Chloride 102 mmol/L (98-108); Creatinine, Serum 0.78 mg/dL (0.70-1.20); EST Glomerular Filtration Rate 78 (>60); Globulin 2.6 g/dL (2.2-4.2); Glucose 74 mg/dL (70-99); Potassium 4.5 mmol/L (3.3-5.1); Protein, Total 6.6 g/dL (5.9-8.4); Sodium Level 139 mmol/L (133-145); Total Bilirubin 0.47 mg/dL (0.00-1.30)
[2024-08-19 13:33] LABS: CRP < 3.00 mg/L (0.0-3.0); Vitamin D,25 Hydroxy 45.4 ng/mL (30-100)
== END | disposition home or self-care (01) ==
LOC: BIMLAB 10:43
PROVIDERS: PCP Internal Medicine; Referring Provider Internal Medicine; Visit Provider Internal Medicine
DX: K74.60 Unspecified cirrhosis of liver (principal); K75.81 Nonalcoholic steatohepatitis (NASH); M81.0 Age-related osteoporosis without current pathological fracture
CPT/HCPCS: 36415; 80053; 82140; 82306; 85025; 85610; 86140

== ENCOUNTER → 2024-11-19 | Outpatient (CLI) | payer MEDICARE, OTHER, SELFPAY ==
--- NOTE | 2024-11-19 14:35 | CT_ITS ---
PROCEDURE: ABDOMEN/PELVIS WITHOUT CONT 11/19/2024 REASON FOR EXAM: ABD MASS TECHNIQUE: ABDOMEN/PELVIS WITHOUT CONT Noncontrast technique limits evaluation of the abdominal and pelvic viscera. Coronal and Sagittal reconstruction series were provided. One or more dose reduction techniques were used (e.g., Automated exposure control, adjustment of the mA and/or kV according to patient size, use of iterative reconstruction technique). ORAL CONTRAST TYPE: None. AMOUNT: mL COMPARISON: MRI abdomen November 12, 2023 FINDINGS: Lung bases: Clear. No pleural effusions. The liver, spleen, pancreas, adrenals and kidneys are unremarkable Gallbladder: Cholecystectomy clips in the gallbladder fossa. Bladder: Unremarkable. Reproductive Organs: Status post hysterectomy. Bowel: Normal caliber and appearance. Appendix: No inflammatory process in the right lower quadrant. Lymph nodes: No pathologically enlarged lymph nodes. Vasculature: Calcific atherosclerosis in the normal caliber abdominal aorta. Peritoneum / Retroperitoneum: No free fluid or free air. Bones: No aggressive process. No abdominal mass identified. CT/Abdomen/Pelvis without Cont IMPRESSION: No acute process. No abdominal mass identified. Reading Location[facility]
== END | disposition home or self-care (01) ==
LOC: CT 14:23
PROVIDERS: PCP Internal Medicine; Referring Provider Internal Medicine; Visit Provider Internal Medicine
DX: R19.00 Intra-abdominal and pelvic swelling, mass and lump, unspecified site (principal)
CPT/HCPCS: 74176

== ENCOUNTER → 2024-12-20 | Day surgery (SDC) | payer MEDICARE, OTHER, SELFPAY ==
--- NOTE | 2024-12-09 15:04 | HP.PCM_ITS ---
History and Physical Date of Admission: 12/20/24 Latoya Kelley is a 78 is a white female with a history of underlying CAD, PSVT, and hyperlipidemia. Pt had COVID in January of 2022. She has not recovered from this and has been diagnosed with ocean transportation intermediary COVID. Post COVID she was diagnosed with Afib. She also has a history of SVT and was evaluated by EP in 2018. 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 She appears to be in Afib today. This appear to be persistent. She did undergo an echocardiogram in June 2024 which demonstrated left systolic functions normal with an estimated ejection fraction of 60%. Pulmonary artery systolic pressure 28 mmHg. At that time had a discussion with patient about whether or not to pursue a cardioversion versus an EP ablation. Patient was hesitant to proceed with either. She did call her office back this past week with concerns over palpitations. Did again have a long discussion with patient over cardioversion versus EP referral for possible ablation. She is agreeable to proceed with cardioversion. Medical History Hypotension Lightheadedness SOB (shortness of breath) Long COVID Wears glasses Wears dentures History of Clostridium difficile infection Cancer Alcohol use Ambulates with cane Fatty liver Excessive bleeding Difficulty swallowing Gastric reflux Shortness of breath on exertion Former smoker PAD (peripheral artery disease) History of Holter monitoring History of stress test History of echocardiogram Cardiology follow-up encounter History of atrial fibrillation PAF (paroxysmal atrial fibrillation) Arrhythmia Anxiety and depression Flu vaccine need Overactive bladder Abdominal pain Palpitations Hyperlipemia, mixed Atherosclerosis of [place] coronary artery of [place] heart without angina pectoris Paroxysmal SVT (supraventricular tachycardia) Hx of skin cancer, basal cell Heart disease Pre-invasive breast cancer GERD (gastroesophageal reflux disease) Arthritis Fibromyalgia Surgical History History of colonoscopy History of cholecystectomy H/O removal of cyst excision of abdominal tumor S/P lumpectomy, right breast Esophageal dilatation Hx of tonsillectomy H/O total hysterectomy with bilateral salpingo-oophorectomy (BSO) Hx of laparoscopic gastric banding Family History Father CVA (cerebral vascular accident) Mother Brain tumor mother of brain tumor at 44 Brother Myocardial infarction of DC in 60s Sister Myocardial infarction of [place] in 70s Son CVA (cerebral vascular accident) Social History Smoking Status: Former smoker how long ago did patient quit smokin alcohol intake: current alcohol intake frequency: a few times a month Alcohol t ype: wine substance use type: does not use caffeine: No what type of physical activity do you participate in: none seatbelt use: always do you feel safe at home: Yes ROS Const Const: Negative for fatigue, weakness, headache(s) or weight loss (on GLTP1) Eyes Eyes: Positive for change in vision (seeing a retina specialist) and other (Macular deg, right eye) ENT ENT: Positive for balance problems; Negative for headache(s), dizziness or hearing loss Cardio Chest Pain: No Palpitations: Yes (not in the last 2-3 months) Resp Respiratory: Negative for SOB with activity, SOB at rest or SOB orthopnea\SOB lying down GI GI: Negative nausea, vomiting or heartburn : Positive for hematuria Musc Musc: Positive for muscle aches/ myalgia, muscle weakness, joint pain and balance problems Neuro Neuro: Negative for dizziness, headache(s) or weakness Endo Endo: Negative for fatigue Psych Psych: Positive for anxiety and depression Cardiology Exam Const Appearance: cooperative, healthy appearing, comfortable and no acute distress Nutritional Appearance: well nourished and obese Orientation: alert, awake and oriented x3 Head Head: normal to inspection Ears: hearing grossly normal bilaterally Nose: external nose normal Face and Sinus: face symmetric Mouth: moist mucous membranes Eyes General: appearance normal, both eyes and all related structures Eyelids: eyelids normal EOM: EOM intact bilaterally Neck Neck: normal visual inspection and no JVD Carotids: normal carotid upstroke Chest Chest inspection: normal inspection of the chest, symmetric chest movement and normal respiratory effort; Negative cough Auscultation: Bilateral: Clear to Auscultation Cardio Rate: Negative regular rate Rhythm: irregularly irregular Heart sounds: S1 normal and S2 normal; Negative rub, gallop or murmur GI GI: normal to inspection and obese Neuro General: patient alert, patient awake, patient oriented x3 and CN's II-XI intact bilaterally Skin Skin: no rashes or lesions noted Extremities Pulses: Normal: Right Posterior Tibial Pulse, Left Posterior Tibial Pulse, Right Radial Pulse and Left Radial Pulse Lower Extremity Edema: None: Bilateral Psych Psychological: normal affect Assessment & Plan Assessment/Plan (1) Persistent atrial fibrillation: PLAN: Patient is scheduled to undergo a cardioversion. Follow-up will be based upon findings. She will follow-up in the office in 1 week for an EKG.
[2024-12-16 12:41] LABS: Anion Gap 8 (5-15); BUN 13 mg/dL (4-19); BUN/Creat Ratio 18.9 RATIO (10-20); Calcium,Total 9.0 mg/dL (7.6-11.0); Carbon Dioxide 31.1 mmol/L (21.0-32.0); Chloride 101 mmol/L (98-108); Glucose 84 mg/dL (70-99); Potassium 4.6 mmol/L (3.3-5.1)
[2024-12-17 09:37] VITALS: BMI 31.6
== END | disposition home or self-care (01) ==
LOC: CLSP 10:43
PROVIDERS: Physician Assistant Medical; PCP Internal Medicine; Referring Provider Internal Medicine Cardiovascular Disease; Visit Provider Internal Medicine Cardiovascular Disease
DX: I48.19 Other persistent atrial fibrillation (principal); I25.10 Atherosclerotic heart disease of native coronary artery without angina pectoris; E78.2 Mixed hyperlipidemia; Z82.49 Family history of ischemic heart disease and other diseases of the circulatory system; Z87.891 Personal history of nicotine dependence; Z79.01 Long term (current) use of anticoagulants; Z79.899 Other long term (current) drug therapy; Z86.16 Personal history of COVID-19
CPT/HCPCS: 36415; 80048; 93005

== ENCOUNTER → 2025-01-10 | Outpatient (CLI) | payer MEDICARE, OTHER, SELFPAY ==
[2025-01-10 12:51] LABS: Prothrombin Time (Protime)PT. 14.6 SECONDS (11.7-14.9)
[2025-01-10 13:24] LABS: Hematocrit 43.1 % (37-47); Hemoglobin 14.2 g/dL (12.0-15.0); Immature Granulocytes Count 0.030 X10^3/uL (0.0-0.0); Mean Corp Hgb Conc 32.9 g/dL (32-36); Mean Corpuscular Volume 91.1 fL (81-99); Mean Platelet Vol. 10.5 fl (6.2-12.0); NRBC Flagged by Analyzer 0 % (0-5); Platelet Count 217 K/mm3 (150-450); RBC Distribution Width CV 13.7 % (11.6-14.6); RBC Distribution Width SD 46.4 fl (35.1-43.9); Red Blood Count 4.73 M/mm3 (4.2-5.4); White Blood Count 6.7 K/mm3 (4.4-11.0)
[2025-01-10 13:50] LABS: AST(SGOT) 27 U/L (<=31); Alanine Aminotransfer ALT/SGPT 16 U/L (<=34); Albumin, Serum 3.8 g/dL (3.4-4.8); Alkaline Phosphatase 80 U/L (35-104); Anion Gap 10 (5-15); BUN 13 mg/dL (4-19); BUN/Creat Ratio 17.9 RATIO (10-20); Calcium,Total 9.0 mg/dL (7.6-11.0); Carbon Dioxide 25.3 mmol/L (21.0-32.0); Chloride 104 mmol/L (98-108); Globulin 2.4 g/dL (2.2-4.2); Glucose 76 mg/dL (70-99); Potassium 4.8 mmol/L (3.3-5.1); Vitamin B12 287 pg/mL (180-914)
[2025-01-10 13:57] LABS: CRP < 3.00 mg/L (0.0-3.0)
== END | disposition home or self-care (01) ==
LOC: BIMLAB 10:41
PROVIDERS: PCP Internal Medicine; Referring Provider Internal Medicine; Visit Provider Internal Medicine
DX: K31.84 Gastroparesis (principal); K74.60 Unspecified cirrhosis of liver; I48.0 Paroxysmal atrial fibrillation; K75.81 Nonalcoholic steatohepatitis (NASH); I73.9 Peripheral vascular disease, unspecified
CPT/HCPCS: 36415; 80053; 82607; 84443; 85025; 85610; 86140

== ENCOUNTER → 2025-03-04 | Outpatient (CLI) | payer MEDICARE, OTHER, SELFPAY ==
--- NOTE | 2025-03-04 08:30 | BI_ITS ---
EXAM: SCRN MAMM (CAD)W/SEVEN BILAT DATE: 03/04/2025 CLINICAL HISTORY: F, Age 79 y/o , BILATERAL SCREENING MAMMO TECHNIQUE: Procedure Code: [id number] Modality: MG Procedure: SCRN MAMM (CAD)W/SEVEN BILAT COMPARISON: Prior exam(s) were compared FINDINGS: TISSUE DENSITY: The breasts are heterogeneously dense, which may obscure small masses. Bilateral Breast Mammographic Findings: No suspicious masses, calcifications or other abnormalities are identified. BI/SCRN MAMM (CAD)W/SEVEN BILAT IMPRESSION: No mammographic evidence of malignancy in either breast OVERALL FINAL ASSESSMENT BI-RADS 1: NEGATIVE. RECOMMENDATION: Routine annual follow-up in 1 Year Additional Recommendation none A letter with findings and recommendations will be mailed to the patient. Reading Location: [id number]
--- NOTE | 2025-03-04 08:30 | BI_ITS ---
EXAM: SCRN MAMM (CAD)W/SEVEN BILAT DATE: 03/04/2025 CLINICAL HISTORY: F, Age 79 y/o , BILATERAL SCREENING MAMMO TECHNIQUE: Procedure Code: [id number] Modality: MG Procedure: SCRN MAMM (CAD)W/SEVEN BILAT COMPARISON: Prior exam(s) were compared FINDINGS: TISSUE DENSITY: The breasts are heterogeneously dense, which may obscure small masses. Bilateral Breast Mammographic Findings: No suspicious masses, calcifications or other abnormalities are identified. BI/SCRN MAMM (CAD)W/SEVEN BILAT IMPRESSION: No mammographic evidence of malignancy in either breast OVERALL FINAL ASSESSMENT BI-RADS 1: NEGATIVE. RECOMMENDATION: Routine annual follow-up in 1 Year Additional Recommendation none A letter with findings and recommendations will be mailed to the patient. Reading Location: [id number]
[2025-03-04 11:44] LABS: Anion Gap 9 (5-15); BUN 18 mg/dL (4-19); BUN/Creat Ratio 27.2 RATIO (10-20); Calcium,Total 8.6 mg/dL (7.6-11.0); Carbon Dioxide 26.9 mmol/L (21.0-32.0); Chloride 105 mmol/L (98-108); Glucose 69 mg/dL (70-99); Magnesium 2.4 mg/dL (1.5-2.2); Potassium 5.2 mmol/L (3.3-5.1)
== END | disposition home or self-care (01) ==
PROVIDERS: Student in an Organized Health Care Education/Training Program; PCP Internal Medicine; Referring Provider Internal Medicine; Visit Provider Internal Medicine
DX: Z12.31 Encounter for screening mammogram for malignant neoplasm of breast (principal); I48.0 Paroxysmal atrial fibrillation; R00.2 Palpitations
CPT/HCPCS: 36415; 77063; 77067; 80048; 83735; 84443

== ENCOUNTER → 2025-03-28 | Outpatient (CLI) | payer MEDICARE, OTHER, SELFPAY ==
[2025-03-28 15:18] LABS: Anion Gap 8 (5-15); BUN 17 mg/dL (4-19); BUN/Creat Ratio 24.4 RATIO (10-20); Calcium,Total 9.0 mg/dL (7.6-11.0); Carbon Dioxide 29.5 mmol/L (21.0-32.0); Chloride 102 mmol/L (98-108); Glucose 94 mg/dL (70-99); Magnesium 2.2 mg/dL (1.5-2.2); Potassium 5.1 mmol/L (3.3-5.1)
== END | disposition home or self-care (01) ==
LOC: MTLAB 11:01
PROVIDERS: PCP Internal Medicine; Referring Provider Student in an Organized Health Care Education/Training Program; Visit Provider Student in an Organized Health Care Education/Training Program
DX: I48.0 Paroxysmal atrial fibrillation (principal)
CPT/HCPCS: 36415; 80048; 83735

== ENCOUNTER → 2025-04-08 | Outpatient (CLI) | payer MEDICARE, OTHER, SELFPAY ==
--- NOTE | 2025-04-08 08:00 | CT_ITS ---
PROCEDURE: LOW DOSE CT LUNG SCREENING 04/08/2025 REASON FOR EXAM: TOBACCO DEPENDENCE IN REMISSION TECHNIQUE: Procedure Code: [id number] Modality: CT Procedure: LOW DOSE CT LUNG SCREENING Coronal and Sagittal reconstruction series were provided. One or more dose reduction techniques were used (e.g., Automated exposure control, adjustment of the mA and/or kV according to patient size, use of iterative reconstruction technique). REFERENCE LINK: [facility] Lung-RADS RADIATION DOSE SUMMARY: CTDlvol: 3.02 mGy DLP: 92.89 mGycm COMPARISON: Prior study dated January 29, 2024. FINDINGS: PULMONARY NODULES: (Only nodules >3mm are reported) Nodules described below are on series 1 unless otherwise specified. Pulmonary Nodules: Stable 3 mm calcified granuloma in the peripheral lateral aspect of the right upper lobe as seen on axial image number 110 Hardware:None Lymph Nodes:No suspicious lymph nodes are seen. Heart and Vasculature:The heart is nonenlarged.Atherosclerotic calcifications of the thoracic aorta. Thoracic aorta and pulmonary arteries have normal contours; noncontrast technique limits evaluation. Coronary Artery Calcifications: Present Lungs and Airways: Mild emphysematous changes are present. Stable scarring at the lung apices. Pleura:No pleural effusion. Upper Abdomen:Unremarkable Bones:Degenerative changes of the thoracic spine. CT/Low Dose CT Lung Screening IMPRESSION: Stable 3 mm calcified granuloma in the right upper lobe. Coronary artery calcification (CAC) is is present Lung-RADS Category: 2 BENIGN (BASED ON IMAGING FEATURES OR INDOLENT BEHAVIOR). RECOMMEND 12-MONTH SCREENING LDCT. Other Significant Findings: Reading Location: [facility]
== END | disposition home or self-care (01) ==
LOC: CT 07:59
PROVIDERS: PCP Internal Medicine; Referring Provider Internal Medicine; Visit Provider Internal Medicine
DX: Z12.2 Encounter for screening for malignant neoplasm of respiratory organs (principal); F17.210 Nicotine dependence, cigarettes, uncomplicated
CPT/HCPCS: 71271

== ENCOUNTER 2025-04-18 10:25 | Emergency (ER) | payer MEDICARE, OTHER, SELFPAY ==
[2025-04-18 10:26] VITALS: BP 93/76; PULSE 92; RESP 16; TEMP 36.6; O2SAT 97
--- NOTE | 2025-04-18 10:54 | CT_ITS ---
PROCEDURE: BRAIN/HEAD WITHOUT CONTRAST 04/18/2025 REASON FOR EXAM: HEAD INJURY Recent fall. TECHNIQUE: Procedure Code: CTBR Modality: CT Procedure: BRAIN/HEAD WITHOUT CONTRAST Coronal and Sagittal reconstruction series were provided. One or more dose reduction techniques were used (e.g., Automated exposure control, adjustment of the mA and/or kV according to patient size, use of iterative reconstruction technique. RADIATION DOSE SUMMARY: CTDlvol: 44.99 mGy DLP: 779.24 mGycm COMPARISON: None FINDINGS: Brain: Low density in the periventricular white matter suggests mild chronic small vessel ischemic changes. CSF Spaces: Mild generalized cerebral atrophy Sinuses/Mastoids: Clear at visualized levels Bones: Unremarkable CT/Brain/Head without Contrast IMPRESSION: CHRONIC CHANGES. NO ACUTE FINDINGS. Reading Location: [place] [id number]
--- NOTE | 2025-04-18 10:54 | EDS_ITS ---
HPI History of Present Illness Chief Complaint: Head Injury Detail of Chief Complaint: Head injury Informant: patient Narrative Narrative: Patient presents to the emergency department after a fall with head injury. She was trying to get up out of bed to use the restroom at 5 AM when she kind of slipped on the mattress that she has a new bedroom suite and struck her head on the nightstand. No loss of consciousness. Complaining of a knot sensation to her head and some discomfort in her left neck. Denies any paresthesias or weakness to extremities. She has been ambulatory. Patient called her primary care physician and was advised to be seen as she is on Eliquis for history of A- fib. [facility] Medical History Persistent atrial fibrillation Macular degeneration of both eyes Hypotension Lightheadedness SOB (shortness of breath) Long COVID Wears glasses Wears dentures History of Clostridium difficile infection Cancer Alcohol use Ambulates with cane Fatty liver Excessive bleeding Difficulty swallowing Gastric reflux Shortness of breath on exertion Former smoker PAD (peripheral artery disease) History of Holter monitoring History of stress test History of echocardiogram Cardiology follow-up encounter History of atrial fibrillation PAF (paroxysmal atrial fibrillation) Arrhythmia Anxiety and depression Flu vaccine need Overactive bladder Abdominal pain Palpitations Hyperlipemia, mixed Atherosclerosis of [place] coronary artery of [place] heart without angina pectoris Paroxysmal SVT (supraventricular tachycardia) Hx of skin cancer, basal cell Heart disease Pre-invasive breast cancer GERD (gastroesophageal reflux disease) Arthritis Fibromyalgia Home Medications Medication Instructions Recorded Last Taken Type disability placard #1 ea 10/24/21 Unknown Rx trazodone 50 mg tablet 50 mg PO QHS 06/13/22 Unknow n History apixaban 5 mg tablet (Eliquis) 5 mg PO .COMPLEX #180 t abs 07/15/24 12/20/24 Rx cholecalciferol (vitamin D3) 25 25 mcg PO QDAY 5 12/20/24 History mcg (1,000 unit) capsule duloxetine 30 mg capsule,delayed 30 mg PO QDAY 5 12/20/24 History release folic acid 1 mg tablet 1 mg PO QDAY 08/20/24 Unknow n History vitamins A,C,P-tivn-axgipz 4,296 1 cap PO BID 08/20/24 12/20/24 History mcg-226 mg-90 mg capsule (PreserVision AREDS) metoprolol tartrate 25 mg tablet 25 mg PO BID #180 TAB LETS 12/02/24 12/20/24 Rx omega 8-zbx-lgg-fish oil 300 1 cap PO QDAY 01/25/25 Un known History mg-1,000 mg capsule (Fish Oil) gabapentin 100 mg capsule 200 mg PO QHS 03/04/25 Unkno wn History ipratropium bromide 42 mcg (0.06 2 spray intranasal TI D 03/04/25 Unknown History %) nasal spray magnesium glycinate 100 mg (as 100 mg PO QDAY 03/04/25 Unknown History glycinate) tablet Allergy/AdvReac Type Severity Reaction Status Date / Time Penicillins Allergy Rash Verified 04/18/25 10:27 meperidine (From Demerol) AdvReac Vomiting Verified 04/18/25 10:27 Family History Father CVA (cerebral vascular accident) Mother Brain tumor mother of brain tumor at 44 Brother Myocardial infarction of [place] in 60s Sister Myocardial infarction of [place] in 70s Son CVA (cerebral vascular accident) Surgical History History of colonoscopy History of cholecystectomy H/O removal of cyst excision of abdominal tumor S/P lumpectomy, right breast Esophageal dilatation Hx of tonsillectomy H/O total hysterectomy with bilateral salpingo-oophorectomy (BSO) Hx of laparoscopic gastric banding Social History housing: house Smoking Status: Former smoker how long ago did patient quit smokin alcohol intake: current alcohol intake frequency: a few times a month Alcohol type: wine substance use type: does not use caffeine: No what type of physical activity do you participate in: none seatbelt use: always do you feel safe at home: Yes ROS ROS ED Review of Systems ROS Unobtainable: other Constitutional Constitutional ED: Reports lethargy; Denies chills, fever(s), sweats or weight loss Eyes Eyes: Denies blurry vision, change in vision or diplopia ENT ENT ED: Reports other Details: Head injury ; Denies rhinorrhea or sore throat Cardiovascular Cardiovascular: Denies chest pain, orthopnea or racing heartbeat Respiratory/Chest Respiratory/Chest: Denies cough, dyspnea, dyspnea on exertion, orthopnea or sputum Gastrointestinal Gastrointestinal: Denies abdominal pain, diarrhea, nausea or vomiting Genitourinary Genitourinary ED: Denies dysuria, hematuria or urinary frequency Musculoskeletal Musculoskeletal: Reports neck pain; Denies arthralgias, back pain or myalgias Integumentary Denies abscess, Abrasions or rash Neurologic Neurologic: Denies headache(s) or weakness Psychiatric Psychiatric: Denies anxiety, depression or suicidal thoughts Endocrine Endocrinology: Denies polydipsia, polyphagia or polyuria Hematologic/Lymphatic Hematologic/Lymphatic: Denies easy bleeding, easy bruising or lymphadenopathy Allergic/Immunologic Allergic/Immunologic ED: Denies mouth swelling, tongue swelling or urticaria EXAM Physical Exam Const Vital Signs: 04/18/25 10:26 Temperature 97.8 F Temperature Source Temporal Pulse Rate 92 Respiratory Rate 16 Blood Pressure 93/76 Blood Pressure Mean 81 Pulse Ox 97 Oxygen Delivery Method Room Air Positive well nourished and well developed General Appearance ED: well developed and NAD HEENT Reports TM's clear and moist mucous membranes HEENT Narrative: No evidence of trauma to her head. normocephalic and atraumatic; Negative for trauma or tenderness Tympanic Membrane ED: Yes TM's clear Eyes PERRL and EOMs intact bilaterally General Eye ED: Negative for pale conjunctiva or scleral icterus Neck no lymphadenopathy, supple and no JVD Neck Narrative: Mild diffuse tenderness over the C-spine and the left cervical paraspinal musculature. General: Negative for tenderness Chest Wall inspection of chest normal and palpation of chest normal Chest: Negative for tenderness Resp normal respiratory effort and clear to auscultation bilaterally Effort and Inspection: Negative for respiratory distress or pain with movement Auscultation: Negative for rhonchi, wheezes or diminished lung sounds Cardio regular rate, regular rhythm, S1 normal heart sound, S2 normal heart sound and no murmurs Peripheral Pulses: pulses 2+ throughout GI normal to inspection, nondistended, normoactive bowel sounds, soft to palpation, non-tender, non-distended and no masses Back/Spine no CVA tenderness and no thoracic nor lumbar tenderness Extremity normal to inspection General Extremety ED: Negative for edema General Extremity: Negative for edema Neuro oriented x3, CN's II-XII intact bilaterally, no sensory deficits noted and gait normal Sensorium / Orientation: awake, alert, oriented to person, oriented to place and oriented to time Motor Exam: strength 5/5 throughout and strength abnormal Psych mental status grossly normal Skin no rashes or lesions noted and no wounds MDM MDM MDM Narrative Medical decision making narrative: Patient presents with head injury after sliding out of bed this morning at 5 AM. She is on Eliquis. She came in at the request of her primary care physician. Also was complaining of some left-sided neck pain. She has been ambulatory. Denies paresthesias in the upper or lower extremities. Clinically she looks well. CT scan of the brain without contrast obtained was unremarkable. CT scan of the cervical spine showed no fractures. This point she will be discharged to home. Advised to follow-up with primary care physician within next 3 to 5 days. Advised to return if worsening headache, difficulty with balance or speech, vomiting, or condition worsen anyway. Radiography Diagnostic Testing: Clinical Impression(s) from Imaging Studies Brain CT 04/18/25 10:54 IMPRESSION: CHRONIC CHANGES. NO ACUTE FINDINGS. Reading Location: [facility] 04/18/25 10:54 IMPRESSION: NO ACUTE CERVICAL FRACTURE. Multilevel neural foraminal stenosis. Reading Location: [facility]1 Discharge Plan Triage Chief Complaint: Head Injury ED Provider: Ar Allan Dx/Rx/DC Orders Clinical Impression: Closed head injury, Cervical muscle strain Instructions: ED Head Injury (Adult), ED Neck Sprain or Strain Prescriptions: No Action trazodone 50 mg tablet 50 mg PO QHS omega 7-qyf-dmt-fish oil [Fish Oil] 300-1,000 mg capsule 1 cap PO QDAY duloxetine 30 mg capsule,delayed release(DR/EC) 30 mg PO QDAY folic acid 1 mg tablet 1 mg PO QDAY cholecalciferol (vitamin D3) 25 mcg (1,000 unit) capsule 25 mcg PO QDAY PreserVision AREDS 4,296 mcg-226 mg-90 mg capsule 1 cap PO BID gabapentin 100 mg capsule 200 mg PO QHS ipratropium bromide 42 mcg (0.06 %) spray,non-aerosol 2 spray intranasal TID magnesium glycinate 100 mg tablet 100 mg PO QDAY (DME) disability placard See Rx Instructions .ROUTE .MEDSUPPLY Qty: 1 0RF Rx Instructions: As directed, Length of time: 5 years Eliquis 5 mg tablet 5 mg PO .COMPLEX Qty: 180 3RF Rx Instructions: 5 mg orally twice a day: Fax to [facility] @ ; metoprolol tartrate 25 mg tablet 25 mg PO BID Qty: 180 3RF Primary Care Provider: Esperanza Johnson Referrals: Esperanza Johnson MD [Primary Care Provider, Internal Medicine] - 3-5 Days Print Language: Divehi Disposition Disposition: Home, Self Care
--- NOTE | 2025-04-18 10:54 | CT_ITS ---
PROCEDURE: SPINE CERVICAL WITHOUT CONTRAS 04/18/2025 REASON FOR EXAM: FALL TECHNIQUE: Procedure Code: CTSPC Modality: CT Procedure: SPINE CERVICAL WITHOUT CONTRAS Coronal and Sagittal reconstruction series were provided. One or more dose reduction techniques were used (e.g., Automated exposure control, adjustment of the mA and/or kV according to patient size, use of iterative reconstruction technique. RADIATION DOSE SUMMARY: CTDlvol: 20.15 mGy DLP: 418.84 mGycm COMPARISON: None FINDINGS: Alignment: There is straightening of the normal cervical lordosis. Vertebrae: No evidence of vertebral fracture. Soft Tissues: No prevertebral soft tissue swelling. Calcification of the carotid bifurcations. Other: C1-2: Degenerative changes of the atlantoaxial joint. C2-3: Mild degree of disc space narrowing. Facet joint osteoarthritis and hypertrophy more prominent on the right side with right neural foraminal stenosis. C3-4: Mild degree of disc space narrowing. Facet joint osteoarthritis and hypertrophy. Mild degree of bilateral neural foraminal stenosis. C4-5: Mild degree of disc space narrowing. No significant stenosis seen. C5-6: Marked degree of disc space narrowing. Subchondral sclerosis. Spondylosis. Uncovertebral arthrosis. Mild degree of bilateral neural foraminal stenosis. C6-7: Marked degree of disc space narrowing. Spondylosis. Uncovertebral arthrosis. Bilateral neural foraminal stenosis. C7-T1: CT/Spine Cervical without Contras IMPRESSION: NO ACUTE CERVICAL FRACTURE. Multilevel neural foraminal stenosis. Reading Location: [place] [id number]
[2025-04-18 11:40] VITALS: BP 93/76; PULSE 92; RESP 16; TEMP 36.6; O2SAT 97
== END 2025-04-18 11:48 | disposition home or self-care (01) ==
LOC: ED 11:46
PROVIDERS: Emergency Provider Emergency Medicine; PCP Internal Medicine; Visit Provider Emergency Medicine
DX: S09.90XA Unspecified injury of head, initial encounter (principal); S16.1XXA Strain of muscle, fascia and tendon at neck level, initial encounter; I25.10 Atherosclerotic heart disease of native coronary artery without angina pectoris; X58.XXXA Exposure to other specified factors, initial encounter; Z87.891 Personal history of nicotine dependence; Z79.01 Long term (current) use of anticoagulants; Z86.16 Personal history of COVID-19
CPT/HCPCS: 70450; 72125; 99282